=== PATIENT | male | born 1935 | race Caucasian/White ===

== ENCOUNTER 2021-04-02 00:18 | Inpatient (IN) | payer MEDICARE ==
[~2021-04-02] VITALS: Ht 177.8 cm; Wt 77.3 kg
--- NOTE | 2021-04-02 00:22 | PHYS DOC ---
Adult General HPI HPI Patient is an 85-year-old male who presents with a chief complaint of fatigue/weakness and body aches over the last week. States that he usually gets around at home with a walker which he can still but just feels weaker than usual. Denies any headache, change in vision, neck pain, chest pain, shortness of breath, abdominal pain, nausea, vomiting, dysuria, hematuria, blood in the stool or diarrhea. Denies any recent travel, traumas, fevers or known ill contacts. Denies any numbness/weakness/tingling. States he is sitting, standing and walking approximately normal for him but just feels overall weaker. States he eats about once or twice a day and probably does not drink enough water. Review of Systems Review of Systems Review of systems otherwise unremarkable except noted in HPI Physical Exam Physical Exam Constitutional: Well developed, seems a little under nourished, no acute distress, non-toxic appearance. [] HENT: Normocephalic, atraumatic, bilateral external ears normal, oropharynx dry, no oral exudates, nose normal. [] Eyes: PERRLA, EOMI, conjunctiva normal, no discharge. [] Neck: Normal range of motion, no tenderness, supple, no stridor. [] Cardiovascular:Heart rate regular rhythm, no murmur [] Lungs & Thorax: Bilateral breath sounds clear to auscultation [] Abdomen: soft, no tenderness, no masses, no pulsatile masses. [] Skin: Warm, dry, no erythema, no rash. [] Back: No tenderness, no CVA tenderness. [] Extremities: No tenderness, no cyanosis, no clubbing, ROM intact, no edema. [] Neurologic: Alert and oriented X 3, normal motor function, normal sensory function, walking at baseline with help per patient and patient's son, cranial nerves intact, no focal deficits noted, NIH is 0. [] Psychologic: Affect normal, judgement normal, mood normal. [] EKG EKG Rate of 61, QRS of 100, QTc of 412, no STEMI [] Radiology/Procedures Radiology/Procedures [] Heart Score C/O Chest Pain: No Risk Factors: Risk Factors: DM, Current or recent (<one month) smoker, HTN, HLP, family history of CAD, obesity. Risk Scores: Risk Factors: DM, Current or recent (<one month) smoker, HTN, HLP, family history of CAD, obesity. Course & Med Decision Making Course & Med Decision Making Patient is an 85-year-old male who presents with a chief complaint of fatigue/weakness and body aches over the last week Vital signs notable for hypertension. Physical exam noted above. EKG noted above with no STEMI. Normal troponin. Laboratory analysis not concerning. CT of the head not concerning. Chest x-ray not concerning. However, patient is 85, looks malnourished, lives at home alone and has no help to help him in the daytime. States he usually walks with a walker but is even having trouble with that currently. Discussed findings with patient and patient's son and recommended admission to the hospital for continued evaluation and treatment of patient's generalized weakness, and need for physical and/or occupational therapy and discussions about possible placement in a skilled nurs ing facility. Family grateful, verbalized understanding and agreed with plan of admission. Dragon Disclaimer Dragon Disclaimer This electronic medical record was generated, in whole or in part, using a voice recognition dictation system. Departure Departure: Impression: Primary Impression: Generalized weakness Additional Impression: Fatigue Disposition: ADMITTED INPATIENT Admitting Physician: Julianna Vasquez Condition: STABLE Referrals: AGATHA TRACEY MD (PCP) Problem Qualifiers BAIRON SPENCER MD Apr 02, 2021 00:22
[2021-04-02] MEDS ORDERED: IV RINGERS SOLUTION,LACTATED 1,000 ML IV ONE (00:30)
--- NOTE | 2021-04-02 00:39 | EKG ---
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
[2021-04-02 01:11] LABS: BASO # 0.1 x10^3/uL (0.0-0.2); BASO % 1 % (0-3); EOS # 0.3 x10^3/uL (0.0-0.7); EOS % 3 % (0-3); HEMATOCRIT 35.7 % (39.0-53.0); HEMOGLOBIN 12.2 g/dL (13.0-17.5); LYMPH # 1.9 x10^3/uL (1.0-4.8); LYMPH % 20 % (24-48); MEAN CORPUSCULAR HEMOGLOBIN 33 pg (25-35); MEAN CORPUSCULAR HGB CONC 34 g/dL (31-37); MEAN CORPUSCULAR VOLUME 95 fL (79-100); MONO # 0.8 x10^3/uL (0.0-1.1); MONO % 9 % (0-9); NEUT # 6.1 x10^3uL (1.8-7.7); NEUT % 67 % (31-73); PLATELET COUNT 272 x10^3/uL (140-400); RED BLOOD COUNT 3.76 x10^6/uL (4.30-5.70); RED CELL DISTRIBUTION WIDTH 13.7 % (11.5-14.5); WHITE BLOOD COUNT 9.1 x10^3/uL (4.0-11.0)
[2021-04-02 01:19] LABS: BACTERIA,URINE 0 /HPF (0-FEW); BILIRUBIN,URINE NEG (NEG); CLARITY,URINE CLEAR; COLOR,URINE YELLOW; GLUCOSE,URINE NEG (NEG); NITRITE,URINE NEG (NEG); RBC,URINE 0 /HPF (0-2); SQUAMOUS EPITHELIAL CELL,UR OCC /LPF; UROBILINOGEN,URINE 0.2 mg/dL (0.2 mg/dL); WBC,URINE OCC /HPF (0-4)
[2021-04-02 01:20] LABS: CALCIUM 8.9 mg/dL (8.5-10.1); CREATININE 0.8 mg/dL (0.7-1.3); GFR 91.9; POTASSIUM 3.5 mmol/L (3.5-5.1)
--- NOTE | 2021-04-02 01:25 | RAD ---
Single view chest dated 04/02/2021 1:22 AM: COMPARISON: None Clinical Indication: Generalized weakness. Findings: Single upright portable exam of the chest was performed. Heart size upper limits of normal. Lungs are clear. No consolidation or pleural effusion. No pneumothorax. There is mild hyperinflation. IMPRESSION: No acute radiographic abnormality. Electronically signed by: Franklin Cagle MD (04/02/2021 1:23 AM) GLORIA
--- NOTE | 2021-04-02 01:25 | RAD ---
CT head without contrast dated 04/02/2021 1:21 AM Comparison: None CLINICAL INDICATION: Generalized weakness TECHNIQUE: Contiguous axial imaging of the head was performed from skull base to vertex. One or more of the following individualized dose reduction techniques were utilized for this examinat ion: 1. Automated exposure control 2. Adjustment of the mA and/or kV according to patient size 3. Use of iterative reconstruction technique. FINDINGS: Ventricles and sulci are moderately prominent for age. No midline shift or mass effect. Mild patchy l ow density in the deep/subcortical periventricular white matter. No hemorrhage or extra-axial collect ion. Posterior fossa and brainstem unremarkable. Mild mucosal thickening of the ethmoid air cells. The visualized paranasal sinuses and mastoid air ce lls are otherwise clear. No apparent calvarial abnormality. IMPRESSION: 1. No evidence of acute intracranial hemorrhage or mass. 2. Mild chronic small vessel ischemic changes and atrophy. Electronically signed by: Franklin Cagle MD (04/02/2021 1:22 AM) GLORIA
[2021-04-02 01:26] LABS: ALBUMIN 3.1 g/dL (3.4-5.0); ALBUMIN/GLOBULIN RATIO 1.1 (1.0-1.7); MAGNESIUM 1.9 mg/dL (1.8-2.4); TOTAL BILIRUBIN 0.7 mg/dL (0.2-1.0)
[2021-04-02] MEDS ORDERED: CYANOCOBALAMIN (VITAMIN B-12) 1,000 MCG TABLET. PO SCH (01:30)
[2021-04-02] MEDS: FOLIC ACID 1 MG TABLET PO SCH ×2 (01:30→08:25)
[2021-04-02] MEDS: THIAMINE 100 MG TABLET. PO SCH ×2 (01:30→08:25)
[2021-04-02] MEDS ORDERED: HYDR50TA9 PO (02:11)
[2021-04-02] MEDS ORDERED: ATOR80TA72 PO (02:11)
[2021-04-02] MEDS ORDERED: HYDR-2155 (02:11)
[2021-04-02] MEDS ORDERED: CARV12.53 PO (02:11)
[2021-04-02] MEDS ORDERED: METF-658 PO (02:11)
[2021-04-02] MEDS ORDERED: LISI40TA6 PO (02:11)
[2021-04-02] MEDS ORDERED: FAMO20TA5 PO (02:11)
[2021-04-02 03:00] VITALS: BP 190/87
[2021-04-02 06:30] VITALS: BP 155/77
[2021-04-02] MEDS: CYANOCOBALAMIN (VITAMIN B-12) 1,000 MCG TABLET. PO SCH (08:25)
[2021-04-02] MEDS: HYDROcodone/APAP 5/325MG 1 TAB TABLET PO PRN ×3 (08:25→20:47)
[2021-04-02] MEDS ORDERED: FLU VACC QUAD 21-22 (6MOS+) PF 0.5 ML SYRINGE. VAX IM ONE (09:00)
[2021-04-02 11:53] VITALS: BP 165/80
--- NOTE | 2021-04-02 15:13 | HP ---
ADMIT DATE: 04/02/2021 HISTORY OF PRESENT ILLNESS: The patient is an 85-year-old male patient who presented to the Emergency Room with a chief complaint of fatigue and weakness and body aches over the last week. He states that he usually gets around at home with a walker, which he can still, but just feels weaker than usual. He denies any headache, change in vision, neck pain, chest pain. He denied any recent travel, trauma, fever or known ill contact. Denied any numbness, tingling, or weakness. States that his sitting, standing and walking approximately normal for him, but just feels overall weaker. He stated that he eats about once or twice a day and probably does not drink enough water. He was extensively investigated and has had lab work as well as imaging studies. His lab work including a CBC and a CMP were mostly unremarkable. Urinalysis was essentially unremarkable. His coronavirus by rapid testing was negative. His CT scan of the head showed no evidence of acute intracranial hemorrhage or mass, mild chronic small vessel ischemic changes and atrophy and his chest x-ray showed no acute radiographic abnormality. His biggest complaint was pain in his left knee joint. The patient was admitted for further evaluation and perhaps placement in a prison facility. PAST MEDICAL HISTORY: Significant for type 2 diabetes mellitus, hypertension, hyperlipidemia. He is also known to have benign prostatic hypertrophy and according to him, prostate cancer that apparently was treated with according to him, 40 radiation treatment. He also had coronary artery disease status post PCI with stent deployment x2, had generalized osteoarthritis and chronic low back pain. PAST SURGICAL HISTORY: Significant for bilateral cataract extraction, bilateral total hip arthroplasty. ALLERGIES: He has no known drug allergies. MEDICATIONS: He is currently on metoprolol tartrate 25 mg twice a day, atorvastatin 80 mg at bedtime, ranitidine 150 mg daily, lisinopril 40 mg once a day, metformin 500 mg twice a day, omega-3 fatty acids 1000 mg once a day, aspirin 325 mg once a day. He is on hydrocodone 5/325 one tablet every 6 hours. REVIEW OF SYSTEMS: As per history of present illness. PHYSICAL EXAMINATION: GENERAL: When I examined him this morning, he looked well and was clearly in no apparent respiratory distress. There was no pallor, jaundice, cyanosis, or thyromegaly. No jugular venous distention. No limb edema. VITAL SIGNS: His heart rate was 60, blood pressure was 165/80, temperature was 98.4, respiratory rate was 13, and oxygen saturation was 98%. HEAD, EYES, EARS, NOSE, AND THROAT: Showed normocephalic, atraumatic. NECK: Supple. HEART: Normal first and second heart sounds, no gallop, rub or murmur. CHEST: Clear to auscultation, no crepitation or rhonchi. ABDOMEN: Distended, soft, nontender. NEUROLOGIC: He seems to be somewhat confused, but otherwise all his cranial nerves are intact. He moves extremities without difficulty. He ambulates with a walker. LABORATORY DATA: On arrival showed a white cell count of 9000, hemoglobin 12.2, hematocrit 35, MCV 95 and platelet count of 272,000 with normal manual differential. His chemistry showed a serum sodium 134, potassium 3.5, chloride 99, bicarbonate 29, anion gap of 6, BUN 23, creatinine 0.8. Estimated GFR was 92 mL per minute. His glucose 118, calcium was 8.9. His magnesium was 1.9. Total bilirubin, AST, ALT, alkaline phosphatase were normal. Total protein 6, albumin 3.1. His TSH was 2.040. His chest x-ray showed no acute radiographic abnormality and a CT scan of the head showed no evidence of acute intracranial hemorrhage or mass. There are mild chronic small vessel ischemic changes and atrophy. ASSESSMENT AND PLAN: In summary, this is an 85-year-old male patient who was admitted with generalized weakness and progressive decline that has worsened over the last week. He did complain of low back pain and pain in his left knee joint. He apparently tried to renew his driving license, but his application was refused given that he was not driving properly and putting himself and others in the harm's ways. Given the fact that he has prostate cancer treated before and has chronic back pain, I will arrange for him to check his PSA as well as also x-ray of his lumbar spine and decide on further management accordingly. He might require placement in a prison facility or eventually go home with home health, although apparently he is not safe to be on his own. VITOR DR: Amparo TID: [id number]
--- NOTE | 2021-04-02 15:25 | RAD ---
EXAM: Lumbar spine, 3 views. HISTORY: Prostate cancer. Pain. COMPARISON: None. FINDINGS: 3 views of the lumbar spine are obtained. There is levoscoliosis centered at L2. There is 4 mm grade 1 anterolisthesis of L4 on L5 and 3 mm grade 1 anterolisthesis of L5 on S1. There is 3 mm r etrolisthesis of L1 on L2. There is a mild chronic anterior wedge compression deformity of T12. There is multilevel endplate remodeling and Schmorl's node formation at multiple levels. There is facet ar thropathy predominantly at the lower lumbar levels. There is a right lateral bridging osteophyte at L 1-L2, corresponding with the level of maximum scoliotic concavity. There is cholelithiasis. There are bilateral hip arthroplasties. IMPRESSION: 1. Multilevel degenerative change throughout the spine, described in detail above. 2. Lumbar scoliosis and mild retrolisthesis. 3. Moderate chronic wedge compression fracture of T12. There is no acute osseous finding. Electronically signed by: Tatiana Allen MD (04/02/2021 3:23 PM) [id number]
[2021-04-02 15:33] VITALS: BP 160/76
[2021-04-02 19:00] VITALS: BP 156/72
[2021-04-02] MEDS: ATORVASTATIN CALCIUM 20 MG TABLET PO SCH (20:47)
[2021-04-02] MEDS: FAMOTIDINE 20 MG TABLET PO SCH (20:47)
[2021-04-02] MEDS: CARVEDILOL 12.5 MG TABLET PO SCH (20:48)
[2021-04-02 23:16] VITALS: BP 172/78
[2021-04-03] MEDS: HYDROcodone/APAP 5/325MG 1 TAB TABLET PO PRN (02:57)
[2021-04-03 05:00] VITALS: BP 190/83
[2021-04-03] MEDS ORDERED: LISINOPRIL 20 MG TABLET ONE (06:11)
[2021-04-03] MEDS ORDERED: hydroCHLOROthiazide 25 MG TABLET. ONE (06:11)
[2021-04-03] MEDS: CARVEDILOL 12.5 MG TABLET PO SCH ×2 (06:13→20:13)
[2021-04-03] MEDS: LISINOPRIL 20 MG TABLET PO SCH (06:14)
[2021-04-03 07:24] LABS: CALCIUM 8.7 mg/dL (8.5-10.1); CREATININE 0.7 mg/dL (0.7-1.3); GFR 107.2; POTASSIUM 3.2 mmol/L (3.5-5.1)
[2021-04-03] MEDS: metFORMIN XR 500 MG TAB.ER.24H PO SCH (08:18)
[2021-04-03] MEDS: THIAMINE 100 MG TABLET. PO SCH (08:19)
[2021-04-03] MEDS: FAMOTIDINE 20 MG TABLET PO SCH ×2 (08:19→20:13)
[2021-04-03] MEDS: FOLIC ACID 1 MG TABLET PO SCH (08:19)
[2021-04-03] MEDS: CYANOCOBALAMIN (VITAMIN B-12) 1,000 MCG TABLET. PO SCH (08:20)
[2021-04-03] MEDS ORDERED: hydroCHLOROthiazide 25 MG TABLET. PO SCH (09:00)
[2021-04-03] MEDS ORDERED: POTASSIUM CHLORIDE 20 MEQ TABLET.ER. PO ONE (11:00)
[2021-04-03 11:36] VITALS: BP 173/75
[2021-04-03 15:26] VITALS: BP 182/57
--- NOTE | 2021-04-03 16:14 | PN ---
DATE: 04/03/2021 SUBJECTIVE: The patient is resting slightly propped up in bed, in no apparent respiratory distress. He is awake, alert, confused. He is a little bit more ambulatory today. He has been up and about getting out of his room. OBJECTIVE: GENERAL: When I examined him, he looked well and was clearly in no apparent respiratory distress. He was somewhat pale, not jaundiced or cyanosed, no lymphadenopathy, no thyromegaly, no jugular venous distention. No lower limb edema. VITAL SIGNS: His heart rate was 65, blood pressure was 190/83, temperature was 98.3, respiratory rate was 16 and oxygen saturation was 97% on room air. HEAD, EYES, EARS, NOSE, AND THROAT: Normocephalic, atraumatic. NECK: Supple. HEART: Showed normal first and second heart sounds. No gallop, rub or murmur. CHEST: Clear to auscultation. No crepitation or rhonchi. ABDOMEN: Scaphoid, soft, nontender. NEUROLOGIC: He was somewhat demented, confused, but without any obvious lateralizing sign. He is able to ambulate with a walker. His intake over the last 24 hours was 1150, output was 750. LABORATORY DATA: His chemistry showed a serum sodium of 135, potassium 3.2, chloride 101, bicarbonate 32, anion gap of 2, BUN 15, creatinine 0.7. Estimated GFR was 107 mL per minute. His glucose 128, calcium was 8.7. His sed rate was only 11 mm per hour and C-reactive protein was 6.8 mg per liter. Urinalysis essentially unremarkable and his coronavirus by PCR was negative. I did an x-ray of his lumbar spine, which showed that he has multilevel degenerative changes throughout the spine described, has lumbar scoliosis and mild retrolisthesis, has moderate chronic wedge compression fracture of T12. There is no acute osseous finding. ASSESSMENT: In summary, this is an 85-year-old male patient who was admitted with generalized weakness and progressive decline that has worsened over the last week. He does have low back pain that radiates to his left knee joint. Lumbar spine x-ray showed that he has multilevel degenerative disk disease and T12 compression fracture. This seems to be old. His blood pressure also seems to be poorly controlled. PLAN: To continue with all his medication for now. Might have to adjust his blood pressure medication further. He probably needs to be in a long-term care facility. We will discuss this with his family tomorrow and our social and human services assistant or at least he can go for a residential facility for rehabilitation before he can go home. JEFRY/CLARKE JIMÉNEZ: Amparo TID: [id number]
[2021-04-03 19:20] VITALS: BP 177/83
[2021-04-03] MEDS: ATORVASTATIN CALCIUM 20 MG TABLET PO SCH (20:12)
[2021-04-03] MEDS: POTASSIUM CHLORIDE 20 MEQ TABLET.ER. PO SCH (20:13)
[2021-04-04 07:28] VITALS: BP 181/92
[2021-04-04] MEDS: POTASSIUM CHLORIDE 20 MEQ TABLET.ER. PO SCH (07:51)
[2021-04-04] MEDS: FAMOTIDINE 20 MG TABLET PO SCH (07:51)
[2021-04-04] MEDS: CYANOCOBALAMIN (VITAMIN B-12) 1,000 MCG TABLET. PO SCH (07:52)
[2021-04-04] MEDS: FOLIC ACID 1 MG TABLET PO SCH (07:52)
[2021-04-04] MEDS: THIAMINE 100 MG TABLET. PO SCH (07:52)
[2021-04-04] MEDS: CARVEDILOL 12.5 MG TABLET PO SCH (07:52)
[2021-04-04] MEDS: metFORMIN XR 500 MG TAB.ER.24H PO SCH (07:52)
[2021-04-04] MEDS: LISINOPRIL 20 MG TABLET PO SCH (07:53)
[2021-04-04] MEDS ORDERED: hydroCHLOROthiazide 25 MG TABLET. PO SCH (09:00)
[2021-04-04 11:20] VITALS: BP 157/81
[2021-04-04 12:37] LABS: CALCIUM 9.1 mg/dL (8.5-10.1); CREATININE 0.8 mg/dL (0.7-1.3); GFR 91.9; POTASSIUM 4.1 mmol/L (3.5-5.1)
[2021-04-04 15:01] VITALS: BP 147/74
--- NOTE | 2021-04-04 16:01 | RAD ---
Whole-body nuclear bone scan with lateral views of the spine, compared to chest x-ray dated April 012020 and aggressive lumbar spine dated April 12, 2021 for low back pain, T12 compression fractu re, acute versus chronic. TECHNIQUE: Following administration of 22 mCi of technetium 99m labeled MDP, whole body planar and fo cused lateral views of the spine are obtained. FINDINGS: There is normal soft tissue and renal distribution radiotracer. There is focal uptake at th e costochondral junction of the right eighth rib anteriorly. There is also amorphous uptake seen in t he posterior aspect of the right ninth rib, which may be slightly expansile could reflect a lytic bon e lesion or sequelae of prior trauma. CT of the chest could clarify. Multiple degenerative areas of t he costovertebral junctions of the thoracic spine are seen. Subtly increased activity within the ster num just below the manubrium is nonspecific. Degenerative uptake in the cervical spine, left first me tacarpal phalangeal joint, both AC joints, and both shoulders. No vertebral body activity to suggest acute compression fracture. Impression: 1. No activity at T12, indicative of chronicity for the T12 compression deformity seen on radiographs . 2. Abnormal radiotracer activity involving the right posterior ninth rib, with no definite radiograph ic correlate. This could be related to rib fracture in the setting of recent trauma, however patholog ic bone lesion could also have this appearance. CT scan of the chest without contrast could clarify i f clinically warranted. 3. Multiple areas of osteoarthritis. Electronically signed by: Eder Pringle MD (04/04/2021 3:59 PM) [id number]
[2021-04-04] MEDS: HYDROcodone/APAP 5/325MG 1 TAB TABLET PO PRN (16:21)
[2021-04-04] MEDS ORDERED: HYDR-2155 PO (16:40)
--- NOTE | 2021-04-04 16:45 | DISCH ---
HOME HEALTH DISCHARGE/MEDS DISCHARGE INFORMATION: Discharge Date: Apr 04, 2021 Final Diagnosis: Problems Medical Problems: (1) Fatigue Status: Acute (2) Generalized weakness Status: Acute Condition on Discharge: Stable CODE STATUS: Code Status: Full HOME HEALTH: Face to Face: I certify this patient is under my care and that I, or a nurse practitioner or physician's greenhouse assistant working with me, had a face to face encounter that meets the physician face to face encounter requirements with this patient on Medical Condition(s): Other Physical Therapy For: Evalulation/Treatment Occupational Therapy For: Evaluation/Treatment POST DISCHARGE ORDERS: Activity Instructions for Disc: Activity as tolerated DIET AFTER DISCHARGE: Regular CERTIFICATION STATEMENT: Certification Statement: Based on the above finding, I certify that this patient is confined to the home and needs intermittent chcf care, physical therapy and/or speech therapy, or continues to need occupational therapy.~ This patient is under my care, and I have initiated the establishment of the plan of care.~ This patient will be followed by myself or a community physician who will periodically review the plan of care. DISCHARGE MEDICATIONS: Home Meds Active Scripts Hydrocodone Bit/Acetaminophen (HYDROCODONE-APAP 5-325 ) 1 Each Tablet, 1 TAB PO PRN Q6HRS PRN for PAIN for 15 Days, #60 TAB 0 Refills Prov:JOANNA KLEIN MD 04/04/21 Reported Medications Carvedilol (Carvedilol) 12.5 Mg Tablet, 1 TAB PO BID for HTN 04/02/21 Atorvastatin Calcium (Atorvastatin Calcium) 80 Mg Tablet, 1 TAB PO DAILY for HLD 04/02/21 Metformin Hcl (METFORMIN HCL ER) 500 Mg Tab.er.24h, 1 TAB PO DAILY for DM 04/02/21 Hydrochlorothiazide (HYDROCHLOROTHIAZIDE TABLET) 50 Mg Tablet, 1 TAB PO DAILY fo r CHF 04/02/21 Hydrocodone Bit/Acetaminophen (HYDROCODONE-APAP 5-325 ) 1 Each Tablet, 5-325 MG UD for pain 04/02/21 Famotidine (FAMOTIDINE) 20 Mg Tablet, 1 TAB PO BID for gerd 04/02/21 Lisinopril (LISINOPRIL) 40 Mg Tablet, 1 TAB PO DAILY for htn 04/02/21 JOANNA KLEIN MD Apr 04, 2021 16:45
--- NOTE | 2021-04-05 01:13 | PN ---
DATE: 04/04/2021 SUBJECTIVE: The patient is resting, slightly propped up in bed, in no apparent respiratory distress, sleepy, but arousable on questioning him. He continued to have some low back pain radiating to her left leg. According to nursing staff, he is ambulating with a walker, but he is unsteady. He is very confused and disoriented at times. PHYSICAL EXAMINATION: GENERAL: When I examined him, he looked pale, but no jaundice, cyanosis or thyromegaly. No jugular venous distention. No limb edema. VITAL SIGNS: His heart rate this morning 66, blood pressure is 157/81, temperature 97.8, respiratory rate was 18 and oxygen saturation was 98%. The rest of clinical exam stable. His intake was 1060. No output was recorded. LABORATORY DATA: His lab work still pending at the time of this dictation. ASSESSMENT: 1. Generalized weakness, progressive decline. 2. Low back pain that radiates to left knee. 3. Lumbar spine x-ray showed that he has multilevel degenerative disk disease and T12 compression fracture. Other medical problems including: A. Type 2 diabetes mellitus. B. Hypertension. C. Hyperlipidemia. D. Benign prostatic hypertrophy. E. Prostate cancer. F. Coronary artery disease status post PCI with stent deployment x 2. PLAN: To continue with pain management. Continue with physical and occupational therapy. Await the results of bone scan and also discussion with his family regarding placement or discharge home with home health. JOHN DR: Amparo TID: [id number]
== END 2021-04-04 17:55 | disposition home health service (06) | DRG 552 ==
LOC: ER 00:18 → 1 SOUTH 01:32
PROVIDERS: ADMIT Internal Medicine; ATTEND Internal Medicine
DX: M51.36 Other intervertebral disc degeneration, lumbar region (principal); M48.54XA Collapsed vertebra, not elsewhere classified, thoracic region, initial encounter for fracture; E11.9 Type 2 diabetes mellitus without complications; E78.5 Hyperlipidemia, unspecified; G89.29 Other chronic pain; I10 Essential (primary) hypertension; I25.10 Atherosclerotic heart disease of native coronary artery without angina pectoris; M15.9 Polyosteoarthritis, unspecified; N40.0 Benign prostatic hyperplasia without lower urinary tract symptoms; Z85.46 Personal history of malignant neoplasm of prostate; Z95.5 Presence of coronary angioplasty implant and graft; Z96.643 Presence of artificial hip joint, bilateral; Z98.41 Cataract extraction status, right eye; Z98.42 Cataract extraction status, left eye; Z20.822 Contact with and (suspected) exposure to COVID-19
CPT/HCPCS: 36415; 70450; 71045; 72100; 78306; 80048; 80053; 81001; 82947; 83735; 84443; 84484; 85025; 85651; 86140; 87426; 90471; 90686; 93005; A9503; G0103; J7120; U0003; 99285-25

== ENCOUNTER 2021-04-25 23:49 | Inpatient (IN) | payer MEDICARE ==
[~2021-04-25] VITALS: Ht 180.3 cm; Wt 75.2 kg
[~2021-04-25 23:49] MED LIST: ATOR80TA72 PO; CARV12.53 PO; FAMO20TA5 PO; HYDR-2155; HYDR-2155 PO; HYDR50TA9 PO; LISI40TA6 PO; METF-658 PO
--- NOTE | 2021-04-26 00:01 | PHYS DOC ---
Past History Past Medical History: CAD, CHF, Diabetes Past Surgical History: Other General Adult HPI: HPI: ".. I needed to go pee... but I was too weak to get up and go to bathroom.. I ve been weak for a while .. but not this weak.. I am to see a cardiology person tomorrow... here in [place].. he is out of .... Dr. Tracey has set it up...." Patient is a 86 year old male who presents with above hx and complaints increased weakness. Patient has a history of diabetes, hypertension, hyperlipidemia, enlarged prostate, prostate cancer, coronary artery disease, status post stent deployment x2, osteoarthritis, chronic low back pain, and deconditioning, . The patient recently admitted for similar complaints on 04/02/2021. Patient has not had any recent changes in meds. No recent travel. No specific ill contacts. No history of venous pression. Review of Systems: Review of Systems: Constitutional: Denies fever or chills Eyes: Denies change in visual acuity HENT: Denies nasal congestion or sore throat Respiratory: Planes of shortness of breath Cardiovascular: Denies chest pain or edema GI: Denies abdominal pain, nausea, vomiting, bloody stools or diarrhea : Denies dysuria Musculoskeletal: Complains of generalized weakness Integument: Denies rash Neurologic: Denies headache, focal weakness or sensory changes Endocrine: Denies polyuria or polydipsia Lymphatic: Denies swollen glands Psychiatric: Denies depression or anxiety Family History: Family History: Noncontributory to presentation Current Medications: Current Meds: See nursing for home meds Allergies: Allergies: Allergies Coded Allergies Type Severity Reaction Last Updated Verified No Known Drug Allergies 04/02/21 No Physical Exam: PE: Constitutional: Moderate distress, non-toxic appearance. [] HENT: Normocephalic, atraumatic, bilateral external ears normal, oropharynx moist, no oral exudates, nose normal. Multiple senile keratosis. Large ones over the quaker areas. Eyes: PERRLA, EOMI, conjunctiva normal, no discharge. [] Neck: Normal range of motion, no tenderness, supple, no stridor. [] Cardiovascular:Heart rate regular rhythm, no murmur, PMI to the left monitor shows a sinus bradycardia with occasional PVC Lungs & Thorax: Bilateral breath sounds equal apex with some basilar crackles on auscultation [] Abdomen: Bowel sounds normal, soft, no tenderness, no masses, no pulsatile masses. [] Skin: Warm, dry, no erythema, no rash. Poor turgor. Senile keratosis and sun exposed areas Back: No tenderness, no CVA tenderness. [] Extremities: No tenderness, no cyanosis, no clubbing, ROM intact, mild ankle edema. Arthritic changes Neurologic: Alert and oriented X 3, moves all extremities on request, does have distal sensory, complains of generalized weakness but reports no focal deficits noted. [] Psychologic: Affect anxious, judgement normal, mood normal. [] EKG: EKG: My interpretation EKG shows a sinus bradycardia at 59 bpm. Baseline artifact. Some inferior changes. But no findings of acute STEMI of contralateral changes. Time of EKG is 00 13 minutes Radiology/Procedures: Radiology/Procedures: [][][address] [address] IMAGING REPORT Signed PATIENT: CHARLENE PEREZ ACCOUNT: [id number] : 1935 LOCATION: ER AGE: 86 SEX: M EXAM STATUS: REG ER ORD. PHYSICIAN: HAI JOHNSON MD REASON: dyspnea PROCEDURE: PORTABLE CHEST 1V XR CHEST 1V 04/26/2021 12:38 AM INDICATION: Dyspnea COMPARISON: 04/02/2021 TECHNIQUE: Portable frontal view of the chest is provided. FINDINGS: The cardiomediastinal silhouette is within normal limits. Lungs are clear. There are no significant pleural effusions. There is no pulmonary vascular conge stion. No pneumothorax. No suspicious osseous abnormality. IMPRESSION: There is no acute cardiopulmonary process. Electronically signed by: Keith Mai MD (04/26/2021 12:56 AM) [facility] DICTATED AND SIGNED BY: KEITH MAI MD DATE: 04/26/21 0055 CC: AGATHA TRACEY MD; HAI JOHNSON MD ~MTH0 0 Heart Score: C/O Chest Pain: N/A Risk Factors: Risk Factors: DM, Current or recent (<one month) smoker, HTN, HLP, family history of CAD, obesity. Risk Scores: Score 0 - 3: 2.5% MACE over next 6 weeks - Discharge Home Score 4 - 6: 20.3% MACE over next 6 weeks - Admit for Clinical Observation Score 7 - 10: 72.7% MACE over next 6 weeks - Early Invasive Strategies Course & Med Decision Making: Course & Med Decision Making Pertinent Labs and Imaging studies reviewed. (See chart for details) Discussed presentation, testing and tx. plan with Dr. Vasquez- Admit to his service Impression: 1. Weakness 2. Hyponatremia 130 3. Anemia 12.4 4. Bradycardia 5. Hypertension [] Dragon Disclaimer: Dragon Disclaimer: This electronic medical record was generated, in whole or in part, using a voice recognition dictation system. Departure Departure: Referrals: AGATHA TRACEY MD (PCP) Janine Disclaimer This chart was dictated in whole or in part using Voice Recognition software in a busy, high-work load, and often noisy Emergency Department environment. It may contain unintended and wholly unrecognized errors or omissions. HAI JOHNSON MD Apr 26, 2021 00:01
[2021-04-26] MEDS ORDERED: IV RINGERS SOLUTION,LACTATED 1,000 ML IV SCH (00:15)
[2021-04-26 00:24] LABS: BASO % 1 % (0-3); EOS # 0.2 x10^3/uL (0.0-0.7); EOS % 3 % (0-3); HEMATOCRIT 36.5 % (39.0-53.0); HEMOGLOBIN 12.4 g/dL (13.0-17.5); LYMPH # 1.6 x10^3/uL (1.0-4.8); LYMPH % 21 % (24-48); MEAN CORPUSCULAR HEMOGLOBIN 32 pg (25-35); MEAN CORPUSCULAR HGB CONC 34 g/dL (31-37); MEAN CORPUSCULAR VOLUME 93 fL (79-100); MONO # 0.6 x10^3/uL (0.0-1.1); MONO % 9 % (0-9); NEUT # 4.9 x10^3uL (1.8-7.7); NEUT % 67 % (31-73); PLATELET COUNT 285 x10^3/uL (140-400); RED BLOOD COUNT 3.91 x10^6/uL (4.30-5.70); RED CELL DISTRIBUTION WIDTH 13.3 % (11.5-14.5); WHITE BLOOD COUNT 7.4 x10^3/uL (4.0-11.0)
[2021-04-26 00:41] LABS: CREATININE 1.1 mg/dL (0.7-1.3); GFR 63.5; POTASSIUM 3.4 mmol/L (3.5-5.1)
[2021-04-26 00:54] LABS: BARBITURATES NEG (NEG); BENZODIAZEPINES NEG (NEG); CANNABINOIDS NEG (NEG); COCAINE NEG (NEG); METHADONE NEG (NEG); OPIATES POS (NEG); PHENCYCLIDINE NEG (NEG)
--- NOTE | 2021-04-26 00:58 | RAD ---
XR CHEST 1V 04/26/2021 12:38 AM INDICATION: Dyspnea COMPARISON: 04/02/2021 TECHNIQUE: Portable frontal view of the chest is provided. FINDINGS: The cardiomediastinal silhouette is within normal limits. Lungs are clear. There are no significant pleural effusions. There is no pulmonary vascular congestion. No pneumothora x. No suspicious osseous abnormality. IMPRESSION: There is no acute cardiopulmonary process. Electronically signed by: Liat Colon MD (04/26/2021 12:56 AM) [facility]
[2021-04-26 00:59] LABS: AMPHETAMINE/METHAMPHETAMINE NEG (NEG)
[2021-04-26 01:02] LABS: BACTERIA,URINE 0 /HPF (0-FEW); BILIRUBIN,URINE NEG (NEG); CLARITY,URINE CLEAR; COLOR,URINE YELLOW; GLUCOSE,URINE NEG (NEG); NITRITE,URINE NEG (NEG); RBC,URINE 0 /HPF (0-2); SQUAMOUS EPITHELIAL CELL,UR OCC /LPF; WBC,URINE RARE /HPF (0-4)
[2021-04-26 01:03] LABS: ALBUMIN 3.1 g/dL (3.4-5.0); DIRECT BILIRUBIN 0.2 mg/dL (0.0-0.2); MAGNESIUM 1.9 mg/dL (1.8-2.4); TOTAL BILIRUBIN 0.8 mg/dL (0.2-1.0); TOTAL PROTEIN 6.5 g/dL (6.4-8.2)
[2021-04-26] MEDS ORDERED: SODIUM BICARB ADULT 8.4% 50 MEQ/50 ML DISP.SYRIN. IV ONE (01:15)
[2021-04-26] MEDS ORDERED: ONDANSETRON PF 4 MG/2 ML VIAL. IVP PRN (01:30)
--- NOTE | 2021-04-26 02:22 | RAD ---
PQRS Compliance Statement: One or more of the following individualized dose reduction techniques were utilized for this examinat ion: 1. Automated exposure control 2. Adjustment of the mA and/or kV according to patient size 3. Use of iterative reconstruction technique CT head without contrast 04/26/2021 1:42 AM INDICATION: Weakness COMPARISON: CT head 04/02/2021 TECHNIQUE: Multiple axial CT images of the head were obtained from skull base through the vertex with out intravenous contrast. FINDINGS: Head: Ventricles, sulci and basal cisterns are prominent compatible with moderate generalized cerebral volu me loss. Low-attenuation in the periventricular white matter is suggestive of chronic small vessel is chemic changes. There is no hydrocephalus. Shepherd-white matter differentiation is normal. There is no a cute intracranial hemorrhage. There is no mass, mass effect or midline shift. Posterior fossa is norm al in appearance. Visualized portions of the orbits are normal. Paranasal sinuses are well aerated. Mastoid air cells a re well aerated. Scalp and calvaria are normal. IMPRESSION: No acute intracranial hemorrhage. Moderate generalized cerebral volume loss. Low-attenuation in the periventricular white matter is suggestive of chronic small vessel ischemic ch anges. Electronically signed by: Liat Colon MD (04/26/2021 2:20 AM) [facility]
[2021-04-26 03:02] VITALS: BP 160/84
[2021-04-26] MEDS: RIVAROXABAN 15 MG TABLET. PO SCH ×3 (04:07→16:20)
[2021-04-26] MEDS: ACETAMINOPHEN 325 MG TABLET PO PRN ×2 (04:09→16:25)
--- NOTE | 2021-04-26 04:29 | NUR ---
The patient, CHARLENE PEREZ, 86 y/o, M admitted by JOANNA KLEIN MD, was given written information regarding hospital policies, unit procedures and contact persons. Valuables were checked and vital signs obtained. PT presents after not being able to get up from couch. PT states he normally calls his son for help but decided to call the ambulance this time. Reviewed with PT his PMH, PSH, SH, FH and medications. PT cannot remember his medications. PT states he has discussed with his sons and daughter about moving into assisted living from living home alone sometime soon. PT requires 1-person assist to help with urinal.
[2021-04-26 05:00] VITALS: BP 163/71
--- NOTE | 2021-04-26 07:44 | EKG ---
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 MILD NON SPECIFIC ST CHANGES Electronically Signed On 05-02-2021 10:35:44 TELEVISION ANCHOR by Royal Cavazos
[2021-04-26] MEDS ORDERED: IPRATRPIUM/ALBUTEROL 0.5/2.5MG 3 ML NEBU. NEB SCH (08:00)
--- NOTE | 2021-04-26 08:38 | PDOC2 ---
CARDIAC CONSULT DATE OF CONSULT DOS: DATE: 04/26/21 TIME: 08:26 REASON FOR CONSULT Reason for Consult CHF soraida REFERRING PHYSICIAN Referring Physician Dr. Au SOURCE Source: Chart review, Patient HPI History of Present Illness This is an 86 yo male who presented secondary to weakness, pain in his lower back and legs, and inability to care for himself at home. NT pro BNP mildly elevated, which prompted this consult. He denies any shortness of breath, d izziness, diaphoresis, chest pain, or nausea/vomiting. Was admitted recently for same. Does have a history of CAD s/p PCI/stents and follows with [facility]Dr. Nguyen. No recent illness or fevers. PAST MEDICAL HISTORY Cardiovascular: CAD, CHF, HTN CENTRAL NERVOUS SYSTEM: Dementia GI: GERD Musculoskeletal: low back pain (Chronic), Osteoarthritis Renal/: Prostate Ca. Endocrine: Diabetes PAST SURGICAL HISTORY Past Surgical History: Total hip replacement FAMILY HISTORY Family History: Heart Disease, Stroke SOCIAL HISTORY Smoke: No ALCOHOL: none Drugs: None Lives: Alone CURRENT MEDICATIONS Current Medications Current Medications Lactated Ringer's 1,000 ml @ 100 mls/hr Q10H IV Last administered on 04/26/21at 00:15; Start 04/26/21 at 00:15; Stop 04/26/21 at 10:14 Sodium Bicarbonate (Sodium Bicarb Adult 8.4% Syr) 50 meq 1X ONCE IV Last administered on 04/26/21at 01:36; Start 04/26/21 at 01:15; Stop 04/26/21 at 01:16; Status DC Ondansetron HCl (Zofran) 4 mg PRN Q4HRS PRN IVP NAUSEA/VOMITING; Start 04/26/21 at 01:30; Stop 04/27/21 at 01:29 Acetaminophen (Tylenol) 650 mg PRN Q4HRS PRN PO FEVER > 100.3'F Last administered on 04/26/21at 04:09; Start 04/26/21 at 01:30; Stop 04/27/21 at 01:29 Albuterol/ Ipratropium (Duoneb) 3 ml RTQID NEB Last administered on 04/26/21at 06:00; Start 04/26/21 at 08:00; Stop 04/27/21 at 07:59 Aspirin (Alexis Aspirin) 81 mg DAILY PO ; Start 04/26/21 at 09:00 Rivaroxaban (Xarelto) 15 mg BIDWMEALS PO Last administered on 04/26/21at 04:07; Start 04/26/21 at 02:00 Active Scripts Active Hydrocodone-Apap 5-325 (Hydrocodone Bit/Acetaminophen) 1 Each Tablet 1 Tab PO PRN Q6HRS PRN 15 Days Reported Carvedilol 12.5 Mg Tablet 1 Tab PO BID Atorvastatin Calcium 80 Mg Tablet 1 Tab PO DAILY Metformin Hcl Er (Metformin Hcl) 500 Mg Tab.er.24h 1 Tab PO DAILY Hydrochlorothiazide Tablet (Hydrochlorothiazide) 50 Mg Tablet 1 Tab PO DAILY Famotidine 20 Mg Tablet 1 Tab PO BID Lisinopril 40 Mg Tablet 1 Tab PO DAILY ALLERGIES Allergies: Coded Allergies: No Known Drug Allergies (Unverified , 04/02/21) ROS Review of Systems 14 point ROS conducted with pertinent positives noted in HPI PHYSICAL EXAM General: Alert, Oriented X3, Cooperative, No acute distress HEENT: Atraumatic Lungs: Clear to auscultation Heart: Regular rate (SR/SB) Abdomen: Soft Extremities: No edema Skin: No breakdown Neuro: Normal speech, Sensation intact Psych/Mental Status: Mental status NL, Mood NL MUSCULOSKELETAL: Osteoarthritic changes both hands VITALS Vital Signs Vital Signs Date Time Temp Pulse Resp B/P (MAP) Pulse Ox O2 Delivery O2 Flow Rate FiO2 04/26/21 06:00 Room Air 04/26/21 05:00 98.3 74 16 163/71 (101) 95 LABS LABS Laboratory Tests Test 04/26/21 00:11 04/26/21 00:31 04/26/21 00:48 04/26/21 03:25 White Blood Count 7.4 x10^3/uL (4.0-11.0) Red Blood Count 3.91 x10^6/uL (4.30-5.70) Hemoglobin 12.4 g/dL (13.0-17.5) Hematocrit 36.5 % (39.0-53.0) Mean Corpuscular Volume 93 fL (79-100) Mean Corpuscular Hemoglobin 32 pg (25-35) Mean Corpuscular Hemoglobin Concent 34 g/dL (31-37) Red Cell Distribution Width 13.3 % (11.5-14.5) Platelet Count 285 x10^3/uL (140-400) Neutrophils (%) (Auto) 67 % (31-73) Lymphocytes (%) (Auto) 21 % (24-48) Monocytes (%) (Auto) 9 % (0-9) Eosinophils (%) (Auto) 3 % (0-3) Basophils (%) (Auto) 1 % (0-3) Neutrophils # (Auto) 4.9 x10^3uL (1.8-7.7) Lymphocytes # (Auto) 1.6 x10^3/uL (1.0-4.8) Monocytes # (Auto) 0.6 x10^3/uL (0.0-1.1) Eosinophils # (Auto) 0.2 x10^3/uL (0.0-0.7) Basophils # (Auto) 0.0 x10^3/uL (0.0-0.2) Prothrombin Time 10.2 SEC (9.4-11.4) Prothromb Time International Ratio 1.0 (0.9-1.1) Activated Partial Thromboplast Time 24 SEC (23-33) D-Dimer (Jolynn) 1.09 mg/L (0.00-0.50) Sodium Level 130 mmol/L (136-145) Potassium Level 3.4 mmol/L (3.5-5.1) Chloride Level 93 mmol/L (98-107) Carbon Dioxide Level 30 mmol/L (21-32) Anion Gap 7 (6-14) Blood Urea Nitrogen 23 mg/dL (8-26) Creatinine 1.1 mg/dL (0.7-1.3) Estimated GFR (Cockcroft-Gault) 63.5 Glucose Level 134 mg/dL (70-99) Calcium Level 9.0 mg/dL (8.5-10.1) Magnesium Level 1.9 mg/dL (1.8-2.4) Total Bilirubin 0.8 mg/dL (0.2-1.0) Direct Bilirubin 0.2 mg/dL (0.0-0.2) Aspartate Amino Transf (AST/SGOT) 36 U/L (15-37) Alanine Aminotransferase (ALT/SGPT) 27 U/L (16-63) Alkaline Phosphatase 66 U/L (46-116) Creatine Kinase 184 U/L (39-308) Troponin I High Sensitivity 44 ng/L (4-75) 45 ng/L (4-75) MD-Tvq-R-Type Natriuretic Peptide 676 pg/mL (0-449) Total Protein 6.5 g/dL (6.4-8.2) Albumin 3.1 g/dL (3.4-5.0) Lipase 154 U/L (73-393) Urine Collection Type Unknown Urine Color Yellow Urine Clarity Clear Urine pH 7.5 Urine Specific [place] 1.020 Urine Protein Neg (NEG-TRACE) Urine Glucose (UA) Neg mg/dL (NEG) Urine Ketones (Stick) Neg mg/dL (NEG) Urine Blood Neg (NEG) Urine Nitrite Neg (NEG) Urine Bilirubin Neg (NEG) Urine Urobilinogen Dipstick 1.0 mg/dL (0.2 mg/dL) Urine Leukocyte Esterase Neg (NEG) Urine RBC 0 /HPF (0-2) Urine WBC Rare /HPF (0-4) Urine Squamous Epithelial Cells Occ /LPF Urine Bacteria 0 /HPF (0-FEW) Urine Opiates Screen Pos (NEG) Urine Methadone Screen Neg (NEG) Urine Barbiturates Neg (NEG) Urine Phencyclidine Screen Neg (NEG) Urine Amphetamine/Methamphetamine Neg (NEG) Urine Benzodiazepines Screen Neg (NEG) Urine Cocaine Screen Neg (NEG) Urine Cannabinoids Screen Neg (NEG) Urine Ethyl Alcohol Neg (NEG) SARS-CoV-2 Antigen (Rapid) Negative (NEGATIVE) ASSESSMENT/PLAN Assessment/Plan 1. Weakness, low back pain; CT head without acute changes 2. Chronic diastolic CHF; NT pro BNP mildly elevated, but CXR without pulm edema and no clinical evidence of fluid overload 3. CAD s/p PCI/stent; clinically stable. Follows with [facility] Sinus bradycardia; lowest 44 overnight. No pauses. Presently 66 4. Hypertension; elevated 5. Hyperlipidemia; statin 6. Diabetes, II Recommendations Resume secondary prevention Decrease coreg to 6.25mg with bradycardia Appears compensated. Resume HCTZ. No clinical indication for aggressive diuresis at this time PT/OT Supportive care Follow up with primary reel and rewinder operator upon discharge. ARMANDO JOHNSON APRN Apr 26, 2021 08:38
[2021-04-26] MEDS ORDERED: ASPIRIN 325 MG TABLET PO SCH (09:00)
[2021-04-26] MEDS ORDERED: HYDR-2759 PO (09:25)
[2021-04-26] MEDS ORDERED: hydroCHLOROthiazide 25 MG TABLET. PO SCH (11:00)
[2021-04-26 11:47] VITALS: BP 149/73
[2021-04-26] MEDS ORDERED: metFORMIN XR 500 MG TAB.ER.24H PO SCH (12:30)
[2021-04-26] MEDS: ATORVASTATIN CALCIUM 20 MG TABLET PO SCH (12:46)
[2021-04-26] MEDS: HYDROcodone/APAP 5/325MG 1 TAB TABLET PO PRN ×2 (12:46→19:37)
[2021-04-26] MEDS: FAMOTIDINE 20 MG TABLET PO SCH ×2 (12:47→21:16)
[2021-04-26] MEDS: LISINOPRIL 20 MG TABLET PO SCH (12:47)
[2021-04-26] MEDS ORDERED: IPRATRPIUM/ALBUTEROL 0.5/2.5MG 3 ML NEBU. NEB PRN (13:00)
[2021-04-26] MEDS ORDERED: IOHEXOL 350 MG/ML 100 ML VIAL. IV ONE (13:00)
--- NOTE | 2021-04-26 14:14 | HP ---
DATE OF SERVICE: 04/26/2021 ADMIT DATE: 04/26/2021 HISTORY OF PRESENT ILLNESS: The patient is an 86-year-old male patient who presented to the Emergency Room with a complaint of increased weakness, but was unable, as he was extremely weak to go to the bathroom to urinate and therefore, the patient was brought by the emergency medical service personnel for further evaluation. He was admitted to this hospital recently on 04/02/2021. There were no changes in his medication. No recent travel, no specific ill contact. He, at that time, did complain of pain in his back that radiates to the right leg and we did a CT scan of the lumbar spine as well as a bone scan that were unrevealing. He was extensively investigated in the Emergency Room and has had lab work and chest x-ray. His chest x-ray showed that cardiomediastinal silhouette is within normal limits. Lungs are clear. There is no significant pleural effusion, no pulmonary vascular congestion or pneumothorax. No suspicious osseous abnormality, and his lab work showed that his blood count was generally normal. He has mild hyponatremia and hypokalemia. His D-dimer was high at 1.09; however, PT/INR and APTT were normal. Urinalysis essentially unremarkable and toxic screen was positive for opiates. The patient was admitted for further evaluation with diagnosis of generalized weakness, hyponatremia, hypokalemia and mild normochromic normocytic anemia. PAST MEDICAL HISTORY: Significant for type 2 diabetes mellitus, hypertension, hyperlipidemia. He is known to have benign prostatic hypertrophy. Prostate cancer apparently was treated according to him with 40 radiation treatments. He also had coronary artery disease status post PCI with stent deployment x2. Has generalized osteoarthritis and chronic low back pain. He does have also T12 compression fracture that seems to be chronic. PAST SURGICAL HISTORY: Significant for bilateral cataract extraction, bilateral total hip arthroplasty and angioplasty and stent deployment. ALLERGIES: He has no known drug allergies. FAMILY HISTORY: Noncontributory. SOCIAL HISTORY: He lives alone. He does not smoke, drink alcohol or use any recreational drugs. REVIEW OF SYSTEMS: As per history of present illness. MEDICATIONS: He is currently on the following medications: He is on atorvastatin calcium 80 mg once a day, carvedilol 12.5 mg twice a day, lisinopril 40 mg daily, hydrocodone/APAP 5/325 one tablet every 6 hours, hydrochlorothiazide 50 mg daily, famotidine 20 mg once a day, and metformin 500 mg once a day. PHYSICAL EXAMINATION: GENERAL: On arrival to the Emergency Room, he looked well and was clearly in no apparent distress. He was somewhat pale, not jaundiced or cyanosed. No lymphadenopathy, no thyromegaly, no jugular venous distention. No lower limb edema. VITAL SIGNS: His heart rate was 67, blood pressure was 164/113, his temperature was 98.2, respiratory rate was 16 and oxygen saturation was 97% on room air. HEAD, EYES, EARS, NOSE, AND THROAT: Normocephalic, atraumatic. NECK: Supple. HEART: Showed normal first and second heart sounds. No gallop, rub or murmur. CHEST: Clear to auscultation, no crepitation or rhonchi. ABDOMEN: Scaphoid, soft, nontender. NEUROLOGIC: He is awake, alert, responding appropriately. All cranial nerves intact. He moves extremities without difficulty. His intake and output completely recorded. LABORATORY DATA: Showed a white cell count 7400, hemoglobin 12, hematocrit 36, MCV 93 and platelet count 285,000. His serum sodium is 130, potassium 3.4, chloride 93, bicarbonate 30, anion gap of 7, BUN 23, creatinine 1.1. Estimated GFR was 63 mL per minute. His glucose 134, calcium was 9, magnesium was 1.9. Total bilirubin, AST, ALT, alkaline phosphatase were normal. CK was 184. Troponin was less than 42. His beta natriuretic peptide was 676. Total protein was 6.5, albumin was 3.1. His D-dimer was 1.09, however, prothrombin time/INR and APTT are all normal. Urinalysis essentially unremarkable and was negative for ketones, nitrite, leukocyte esterase, no rbc's, no wbc's and no bacteria. His toxic screen was positive for opioids. ASSESSMENT AND PLAN: The patient has generalized weakness and inability to walk, with chronic back pain that radiates to the right lower extremity. Has hyponatremia, hypokalemia, and mild anemia. My plan is to discontinue his hydrochlorothiazide. Continue with pain management. Continue with physical and occupational therapy and apparently the patient and his son are now in agreement that he needs to be admitted to either assisted living facility or prison facility. JEFRY/CLARKE/NANNETTE DR: JEFRY/blake TID: [id number]
[2021-04-26 16:19] VITALS: BP 156/73
[2021-04-26] MEDS: CARVEDILOL 6.25 MG TABLET PO SCH (16:21)
--- NOTE | 2021-04-26 17:00 | RAD ---
EXAM: Study: CT CHEST WITH CONTRAST - PULMONARY ANGIOGRAM History: Recurrent falls, elevated d-dimer Comparison: Chest radiograph 04/26/2021 Technique: Helical CT of the chest performed after the administration of 79 mL intravenous contrast and timed for angiographic evaluation of the pulmonary arteries per PE protocol. Coronal and sagittal 3D MIP reformations were obtained. One or more of the following individualized dose reduction techniques were utilized for this examinat ion: 1. Automated exposure control 2. Adjustment of the mA and/or kV according to patient size 3. Use of iterative reconstruction technique. Findings: Pulmonary Arteries: Contrast bolus is adequate. There is no acute pulmonary embolism. Heart/Systemic Vasculature: Heart is normal size. No pericardial effusion. Coronary artery calcificat ions are noted. The thoracic aorta is normal in caliber. Mediastinum: Prominent right hilar lymph node, nonspecific. Lungs: Mild confluent opacities in the posterior lower lobes, likely atelectasis. There is a 3 mm sub pleural nodule in the right lower lobe (image 51, series 3). 3 mm nodule in the right middle lobe (im age 63, series 9). There is a calcified granuloma in the lingula. Central airways are clear. No pleur al effusion. Neck/Axilla/Body Wall: No axillary lymphadenopathy. Chest wall is unremarkable. Right thyroid lobe is prominent. Upper Abdomen: There is cholelithiasis. There is a 3.2 cm indeterminate left adrenal nodule. 4.4 cm s imple cyst in the left kidney. There is a 1.0 cm fluid density cystic lesion in the pancreatic neck. Bones: There is a old fracture versus sclerotic lesion in the right lateral third rib. There is moder ate multilevel degenerative disc disease with chronic appearing endplate deformities and degenerative endplate sclerosis at multiple levels. IMPRESSION: 1. No acute pulmonary embolism. 2. Mild dependent opacities in the lower lobes, likely atelectasis. 3. There are two 3 mm nodules in the right lung. In a low risk patient, no follow-up is indicated. I f the patient is at high risk for lung cancer, an optional [address] could be obtained. 4. Old fracture versus sclerotic lesion in the right lateral third rib. 5. Cholelithiasis. 6. 3.2 cm indeterminate left adrenal nodule. Recommend CT or MRI with adrenal mass protocol to [facility] evaluate. 7. 1 cm hypodense lesion in the pancreatic neck. This could be a cyst or intraductal papillary mucin ous neoplasm. Electronically signed by: Angely Shafer MD (04/26/2021 4:57 PM) [id number]
[2021-04-26 18:42] LABS: THYROID STIM HORMONE (TSH) 1.364 uIU/mL (0.358-3.740)
[2021-04-26 19:44] VITALS: BP 114/65
[2021-04-26] MEDS ORDERED: CARVEDILOL 12.5 MG TABLET PO SCH (21:00)
[2021-04-26 23:00] VITALS: BP 134/62
[2021-04-27 06:06] VITALS: BP 165/74
[2021-04-27 06:53] LABS: CALCIUM 8.7 mg/dL (8.5-10.1); CREATININE 0.8 mg/dL (0.7-1.3); GFR 91.7
[2021-04-27 07:02] LABS: BASO % 0 % (0-3); EOS # 0.2 x10^3/uL (0.0-0.7); EOS % 2 % (0-3); HEMOGLOBIN 12.7 g/dL (13.0-17.5); LYMPH # 1.4 x10^3/uL (1.0-4.8); LYMPH % 15 % (24-48); MEAN CORPUSCULAR HEMOGLOBIN 32 pg (25-35); MEAN CORPUSCULAR HGB CONC 34 g/dL (31-37); MEAN CORPUSCULAR VOLUME 93 fL (79-100); MONO # 0.7 x10^3/uL (0.0-1.1); MONO % 8 % (0-9); NEUT # 6.9 x10^3uL (1.8-7.7); NEUT % 75 % (31-73); PLATELET COUNT 295 x10^3/uL (140-400); RED BLOOD COUNT 3.99 x10^6/uL (4.30-5.70); RED CELL DISTRIBUTION WIDTH 13.6 % (11.5-14.5); WHITE BLOOD COUNT 9.2 x10^3/uL (4.0-11.0)
[2021-04-27] MEDS: FAMOTIDINE 20 MG TABLET PO SCH ×2 (08:35→21:07)
[2021-04-27] MEDS: ENOXAPARIN 40 MG/0.4 ML SYRINGE. SQ SCH (08:35)
[2021-04-27] MEDS: ATORVASTATIN CALCIUM 20 MG TABLET PO SCH (08:35)
[2021-04-27] MEDS: ASPIRIN ENTERIC COATED 81 MG TABLET.DR. PO SCH (08:36)
--- NOTE | 2021-04-27 08:36 | PDOC ---
CARDIO Progress Notes Date & Time Date of Service DATE: 04/27/21 TIME: 08:35 Time of Evaluation 08:35 Subjective Notes No chest pain, shortness of breath, or LE edema Vitals Vitals Vital Signs Date Time Temp Pulse Resp B/P (MAP) Pulse Ox O2 Delivery O2 Flow Rate FiO2 04/27/21 06:06 97.5 50 18 165/74 (104) 100 Room Air Weight Weight [ ] Input and Output I.O. Intake and Output 04/27/21 07:00 Intake Total 1070 ml Output Total 200 ml Balance 870 ml Intake Oral 1070 ml Output Urine Total 200 ml # Voids 3 # Bowel Movements 2 Laboratory Labs Laboratory Tests Test 04/26/21 00:11 04/26/21 00:31 04/26/21 00:48 04/26/21 03:25 White Blood Count 7.4 x10^3/uL (4.0-11.0) Red Blood Count 3.91 x10^6/uL (4.30-5.70) Hemoglobin 12.4 g/dL (13.0-17.5) Hematocrit 36.5 % (39.0-53.0) Mean Corpuscular Volume 93 fL (79-100) Mean Corpuscular Hemoglobin 32 pg (25-35) Mean Corpuscular Hemoglobin Concent 34 g/dL (31-37) Red Cell Distribution Width 13.3 % (11.5-14.5) Platelet Count 285 x10^3/uL (140-400) Neutrophils (%) (Auto) 67 % (31-73) Lymphocytes (%) (Auto) 21 % (24-48) Monocytes (%) (Auto) 9 % (0-9) Eosinophils (%) (Auto) 3 % (0-3) Basophils (%) (Auto) 1 % (0-3) Neutrophils # (Auto) 4.9 x10^3uL (1.8-7.7) Lymphocytes # (Auto) 1.6 x10^3/uL (1.0-4.8) Monocytes # (Auto) 0.6 x10^3/uL (0.0-1.1) Eosinophils # (Auto) 0.2 x10^3/uL (0.0-0.7) Basophils # (Auto) 0.0 x10^3/uL (0.0-0.2) Prothrombin Time 10.2 SEC (9.4-11.4) Prothromb Time International Ratio 1.0 (0.9-1.1) Activated Partial Thromboplast Time 24 SEC (23-33) D-Dimer (Jolynn) 1.09 mg/L (0.00-0.50) Sodium Level 130 mmol/L (136-145) Potassium Level 3.4 mmol/L (3.5-5.1) Chloride Level 93 mmol/L (98-107) Carbon Dioxide Level 30 mmol/L (21-32) Anion Gap 7 (6-14) Blood Urea Nitrogen 23 mg/dL (8-26) Creatinine 1.1 mg/dL (0.7-1.3) Estimated GFR (Cockcroft-Gault) 63.5 Glucose Level 134 mg/dL (70-99) Calcium Level 9.0 mg/dL (8.5-10.1) Magnesium Level 1.9 mg/dL (1.8-2.4) Total Bilirubin 0.8 mg/dL (0.2-1.0) Direct Bilirubin 0.2 mg/dL (0.0-0.2) Aspartate Amino Transf (AST/SGOT) 36 U/L (15-37) Alanine Aminotransferase (ALT/SGPT) 27 U/L (16-63) Alkaline Phosphatase 66 U/L (46-116) Creatine Kinase 184 U/L (39-308) Troponin I High Sensitivity 44 ng/L (4-75) 45 ng/L (4-75) XK-Tyv-W-Type Natriuretic Peptide 676 pg/mL (0-449) Total Protein 6.5 g/dL (6.4-8.2) Albumin 3.1 g/dL (3.4-5.0) Triglycerides Level 64 mg/dL (0-150) Cholesterol Level 130 mg/dL (0-200) LDL Cholesterol, Calculated 75 mg/dL (0-100) VLDL Cholesterol, Calculated 12 mg/dL (0-40) Non-HDL Cholesterol Calculated 87 mg/dL (0-129) HDL Cholesterol 43 mg/dL (40-60) Cholesterol/HDL Ratio 3.0 Lipase 154 U/L (73-393) Thyroid Stimulating Hormone (TSH) 1.364 uIU/mL (0.358-3.740) Urine Collection Type Unknown Urine Color Yellow Urine Clarity Clear Urine pH 7.5 Urine Specific [place] 1.020 Urine Protein Neg (NEG-TRACE) Urine Glucose (UA) Neg mg/dL (NEG) Urine Ketones (Stick) Neg mg/dL (NEG) Urine Blood Neg (NEG) Urine Nitrite Neg (NEG) Urine Bilirubin Neg (NEG) Urine Urobilinogen Dipstick 1.0 mg/dL (0.2 mg/dL) Urine Leukocyte Esterase Neg (NEG) Urine RBC 0 /HPF (0-2) Urine WBC Rare /HPF (0-4) Urine Squamous Epithelial Cells Occ /LPF Urine Bacteria 0 /HPF (0-FEW) Urine Opiates Screen Pos (NEG) Urine Methadone Screen Neg (NEG) Urine Barbiturates Neg (NEG) Urine Phencyclidine Screen Neg (NEG) Urine Amphetamine/Methamphetamine Neg (NEG) Urine Benzodiazepines Screen Neg (NEG) Urine Cocaine Screen Neg (NEG) Urine Cannabinoids Screen Neg (NEG) Urine Ethyl Alcohol Neg (NEG) Coronavirus (COVID-19)(PCR) Not detected (NOT DETECTD) SARS-CoV-2 Antigen (Rapid) Negative (NEGATIVE) Test 04/26/21 07:23 04/26/21 11:23 04/27/21 06:30 Troponin I High Sensitivity 42 ng/L (4-75) Glucose (Fingerstick) 87 mg/dL (70-99) White Blood Count 9.2 x10^3/uL (4.0-11.0) Red Blood Count 3.99 x10^6/uL (4.30-5.70) Hemoglobin 12.7 g/dL (13.0-17.5) Hematocrit 37.0 % (39.0-53.0) Mean Corpuscular Volume 93 fL (79-100) Mean Corpuscular Hemoglobin 32 pg (25-35) Mean Corpuscular Hemoglobin Concent 34 g/dL (31-37) Red Cell Distribution Width 13.6 % (11.5-14.5) Platelet Count 295 x10^3/uL (140-400) Neutrophils (%) (Auto) 75 % (31-73) Lymphocytes (%) (Auto) 15 % (24-48) Monocytes (%) (Auto) 8 % (0-9) Eosinophils (%) (Auto) 2 % (0-3) Basophils (%) (Auto) 0 % (0-3) Neutrophils # (Auto) 6.9 x10^3uL (1.8-7.7) Lymphocytes # (Auto) 1.4 x10^3/uL (1.0-4.8) Monocytes # (Auto) 0.7 x10^3/uL (0.0-1.1) Eosinophils # (Auto) 0.2 x10^3/uL (0.0-0.7) Basophils # (Auto) 0.0 x10^3/uL (0.0-0.2) Sodium Level 130 mmol/L (136-145) Potassium Level 3.0 mmol/L (3.5-5.1) Chloride Level 95 mmol/L (98-107) Carbon Dioxide Level 32 mmol/L (21-32) Anion Gap 3 (6-14) Blood Urea Nitrogen 15 mg/dL (8-26) Creatinine 0.8 mg/dL (0.7-1.3) Estimated GFR (Cockcroft-Gault) 91.7 Glucose Level 117 mg/dL (70-99) Calcium Level 8.7 mg/dL (8.5-10.1) Physical Exams HEENT: Neck Supple W Full Motion Chest: Symmetric Lungs: Clear to Auscultation Heart: RRR Abdomen: Soft N/T Extremities: No Edema Neurology: alert, oriented, follow commands Assessment Assessment 1. Weakness, chronic low back pain; CT head without acute changes 2. Chronic diastolic CHF; NT pro BNP mildly elevated, but CXR without pulm edema and no clinical evidence of fluid overload. appears compensated. 3. CAD s/p PCI/stent; clinically stable. Follows with [facility] 4. Sinus bradycardia; lowest 44 overnight. No pauses. Presently 55 5. Hypertension; intermittently elevated 6. Hyperlipidemia; statin 7. Diabetes, II 8. Hyponatremia, hypokalemia 9. Elevated d-dimer; CTA negative for PE. right lung nodule, left adrenal nodule, hypodense lesion in the pancreatic neck, and cholelithiasis were noted. Recommendations Replace K. Check Mg and replace as warranted Will decrease Coreg to 3.125mg. Monitor BP trends. Add amlodipine if BP remains elevated Secondary prevention PT/OT Supportive care Rehab upon discharge Follow up with primary ad operations intern upon discharge. ARMANDO JOHNSON APRN Apr 27, 2021 08:36
[2021-04-27] MEDS: LISINOPRIL 20 MG TABLET PO SCH (08:37)
[2021-04-27] MEDS: CARVEDILOL 6.25 MG TABLET PO SCH ×2 (08:37→16:23)
[2021-04-27] MEDS ORDERED: POTASSIUM CHLORIDE 20 MEQ TABLET.ER. PO ONE ×2 (08:45→14:45)
[2021-04-27 10:29] VITALS: BP 137/80
[2021-04-27] MEDS: HYDROcodone/APAP 5/325MG 1 TAB TABLET PO PRN ×2 (10:31→21:07)
[2021-04-27 14:41] VITALS: BP 129/72
--- NOTE | 2021-04-27 16:54 | NUR ---
Nursing note PT in bed, was able to walk down the kitchen way with PT, verbalized pain, pain medication administered, will be transferred to [place] when discharged from the hospital. medications administered as ordered. bed low call light within reach. PT verbalized no other needs.
[2021-04-27 19:50] VITALS: BP 158/72
[2021-04-27 23:26] VITALS: BP 160/79
[2021-04-28] MEDS: HYDROcodone/APAP 5/325MG 1 TAB TABLET PO PRN ×2 (03:00→09:00)
[2021-04-28 06:12] LABS: CALCIUM 8.5 mg/dL (8.5-10.1); CREATININE 0.8 mg/dL (0.7-1.3); GFR 91.7; POTASSIUM 3.9 mmol/L (3.5-5.1)
[2021-04-28 06:29] VITALS: BP 175/83
[2021-04-28] MEDS: FAMOTIDINE 20 MG TABLET PO SCH (07:48)
[2021-04-28] MEDS: ATORVASTATIN CALCIUM 20 MG TABLET PO SCH (07:49)
[2021-04-28] MEDS: CARVEDILOL 6.25 MG TABLET PO SCH (07:50)
[2021-04-28] MEDS: ASPIRIN ENTERIC COATED 81 MG TABLET.DR. PO SCH (07:50)
[2021-04-28] MEDS: LISINOPRIL 20 MG TABLET PO SCH (07:51)
[2021-04-28] MEDS: ENOXAPARIN 40 MG/0.4 ML SYRINGE. SQ SCH (07:52)
--- NOTE | 2021-04-28 08:32 | PN ---
DATE: 04/27/2021 SUBJECTIVE: The patient is resting, slightly propped up in bed, no apparent distress, continued to complain of low back pain that radiates to the right lower extremity; however, he has been up and about, walking with a walker with physical therapy. Denied any other complaint, in particular denied any nausea, vomiting, or diarrhea. PHYSICAL EXAMINATION: GENERAL: When I examined him, he looked well and was clearly in no apparent respiratory distress. No pallor, jaundice, cyanosis or thyromegaly. No jugular venous distention. No limb edema. VITAL SIGNS: His heart rate was 64, blood pressure is 137/80, temperature was 97.6, respiratory rate was 16, and oxygen saturation was 98%. HEAD, EYES, EARS, NOSE, AND THROAT: Normocephalic, atraumatic. NECK: Supple. HEART: Showed normal first and second heart sounds, no gallop or murmur. CHEST: Clear to auscultation, no crepitation or rhonchi. ABDOMEN: Distended, soft, nontender. NEUROLOGIC: He was grossly intact. His intake and output were incompletely recorded. LABORATORY DATA: This morning showed a serum sodium 130, potassium 3, chloride 95, bicarbonate 32, anion gap of 3, BUN 15, creatinine 0.8. Estimated GFR was 92 mL per minute. His glucose 117, calcium was 8.7, and magnesium was 1.7. His prothrombin time/INR and APTT were normal. D-dimer was slightly elevated. Urinalysis essentially unremarkable and toxic screen was positive for opiates. ASSESSMENT: 1. Generalized weakness. 2. Chronic low back pain. The patient has T12 compression fracture, seemed to be chronic. 3. Chronic diastolic congestive heart failure. 4. Coronary artery disease status post percutaneous coronary intervention with stent deployment, clinically stable. He is chest pain free. 5. Sinus bradycardia. 6. Hypertension. 7. Hyperlipidemia. 8. Type 2 diabetes mellitus. 9. Hyponatremia. 10. Hypokalemia. 11. Elevated D-dimer; however, CT angio was negative for pulmonary embolism. PLAN: My plan is to replenish his potassium. For some reason, the patient is dropping his sodium and potassium. He is not on any diuretics that can cause ____. Denied any diarrhea or constipation. Denied any hematemesis or melena. Denied any nausea or vomiting. I will replenish his potassium. Repeat his lab work again. The family wanted him to go to [facility]. JEFRY/ALVAREZ/KATHERINE DR: JEFRY/blake TID: [id number]
[2021-04-28] MEDS ORDERED: FINASTERIDE 5 MG TABLET. PO SCH (09:00)
[2021-04-28] MEDS ORDERED: metFORMIN XR 500 MG TAB.ER.24H PO SCH (09:00)
[2021-04-28] MEDS ORDERED: MAGNESIUM SULFATE 2GM 50 ML IV ONE (09:15)
--- NOTE | 2021-04-28 09:17 | PDOC ---
CARDIO Progress Notes Date & Time Date of Service DATE: 04/28/21 TIME: 09:07 Time of Evaluation 09:07 Vitals Vitals Vital Signs Date Time Temp Pulse Resp B/P (MAP) Pulse Ox O2 Delivery O2 Flow Rate FiO2 04/28/21 09:00 98 Room Air 04/28/21 07:51 56 175/83 04/28/21 06:29 97.9 18 Weight Weight [ ] Input and Output I.O. Intake and Output 04/28/21 07:00 Intake Total 980 ml Balance 980 ml Intake Oral 980 ml # Voids 22 # Bowel Movements 1 Laboratory Labs Laboratory Tests Test 04/26/21 11:23 04/27/21 06:30 04/28/21 05:48 Glucose (Fingerstick) 87 mg/dL (70-99) White Blood Count 9.2 x10^3/uL (4.0-11.0) Red Blood Count 3.99 x10^6/uL (4.30-5.70) Hemoglobin 12.7 g/dL (13.0-17.5) Hematocrit 37.0 % (39.0-53.0) Mean Corpuscular Volume 93 fL (79-100) Mean Corpuscular Hemoglobin 32 pg (25-35) Mean Corpuscular Hemoglobin Concent 34 g/dL (31-37) Red Cell Distribution Width 13.6 % (11.5-14.5) Platelet Count 295 x10^3/uL (140-400) Neutrophils (%) (Auto) 75 % (31-73) Lymphocytes (%) (Auto) 15 % (24-48) Monocytes (%) (Auto) 8 % (0-9) Eosinophils (%) (Auto) 2 % (0-3) Basophils (%) (Auto) 0 % (0-3) Neutrophils # (Auto) 6.9 x10^3uL (1.8-7.7) Lymphocytes # (Auto) 1.4 x10^3/uL (1.0-4.8) Monocytes # (Auto) 0.7 x10^3/uL (0.0-1.1) Eosinophils # (Auto) 0.2 x10^3/uL (0.0-0.7) Basophils # (Auto) 0.0 x10^3/uL (0.0-0.2) Sodium Level 130 mmol/L (136-145) 132 mmol/L (136-145) Potassium Level 3.0 mmol/L (3.5-5.1) 3.9 mmol/L (3.5-5.1) Chloride Level 95 mmol/L (98-107) 98 mmol/L (98-107) Carbon Dioxide Level 32 mmol/L (21-32) 30 mmol/L (21-32) Anion Gap 3 (6-14) 4 (6-14) Blood Urea Nitrogen 15 mg/dL (8-26) 16 mg/dL (8-26) Creatinine 0.8 mg/dL (0.7-1.3) 0.8 mg/dL (0.7-1.3) Estimated GFR (Cockcroft-Gault) 91.7 91.7 Glucose Level 117 mg/dL (70-99) 116 mg/dL (70-99) Calcium Level 8.7 mg/dL (8.5-10.1) 8.5 mg/dL (8.5-10.1) Magnesium Level 1.7 mg/dL (1.8-2.4) Physical Exams HEENT: Neck Supple W Full Motion Chest: Symmetric Lungs: Clear to Auscultation Heart: RRR Abdomen: Soft N/T Extremities: No Edema Neurology: alert, oriented, follow commands Assessment Assessment 1. Weakness, chronic low back pain; CT head without acute changes 2. Chronic diastolic CHF; NT pro BNP mildly elevated, but CXR without pulm edema and no clinical evidence of fluid overload. appears compensated. 3. CAD s/p PCI/stent; clinically stable. Follows with MAC 4. Sinus bradycardia; lowest 44 overnight. No pauses. Presently 65 5. Hypertension; elevated 6. Hyperlipidemia; statin 7. Diabetes, II 8. Hypomagnesemia 9. Elevated d-dimer; CTA negative for PE. right lung nodule, left adrenal nodule, hypodense lesion in the pancreatic neck, and cholelithiasis were noted. Recommendations Replace Mg Add amlodipine for BP control Secondary prevention Supportive care Rehab Follow up with primary inventory worker upon discharge. ARMANDO JOHNSON APRN Apr 28, 2021 09:17
[2021-04-28] MEDS ORDERED: amLODIPine BESYLATE 5 MG TABLET PO SCH (09:30)
--- NOTE | 2021-04-28 10:00 | DISCH ---
DISCHARGE ORDERS DISCHARGE DATE: Apr 28, 2021 FINAL DIAGNOSIS Generalized weakness chronic back pain CONDITION AT DISCHARGE: Stable Code Status: Full SNF STAY <30 DAYS: Yes POST DISCHARGE ORDERS: ACTIVITY ORDERS: Activity as tolerated DIET AFTER DISCHARGE: Regular TREATMENT/EQUIPMENT ORDERS: ADAPTIVE EQUIPMENT NEEDED: None DISCHARGE MEDICATIONS: Home Meds Active Scripts Hydrocodone Bit/Acetaminophen (HYDROCODONE-APAP 5-325 ) 1 Each Tablet, 1 TAB PO PRN Q6HRS PRN for PAIN for 15 Days, #60 TAB 0 Refills Prov:JOANNA KLEIN MD 04/04/21 Reported Medications Carvedilol (Carvedilol) 12.5 Mg Tablet, 1 TAB PO BID for HTN 04/02/21 Atorvastatin Calcium (Atorvastatin Calcium) 80 Mg Tablet, 1 TAB PO DAILY for HLD 04/02/21 Metformin Hcl (METFORMIN HCL ER) 500 Mg Tab.er.24h, 1 TAB PO DAILY for DM 04/02/21 Hydrochlorothiazide (HYDROCHLOROTHIAZIDE TABLET) 50 Mg Tablet, 1 TAB PO DAILY for CHF 04/02/21 Famotidine (FAMOTIDINE) 20 Mg Tablet, 1 TAB PO BID for gerd 04/02/21 Lisinopril (LISINOPRIL) 40 Mg Tablet, 1 TAB PO DAILY for htn 04/02/21 JOANNA KLEIN MD Apr 28, 2021 10:00
[2021-04-28 10:05] VITALS: BP 154/78
--- NOTE | 2021-04-28 11:01 | DS ---
DATE OF DISCHARGE: 04/28/2021 HOSPITAL COURSE: The patient is an 86-year-old male patient who presented to the Emergency Room again with generalized weakness and chronic low back pain. He also had chronic diastolic congestive heart failure as well as hypokalemia and hyponatremia. He was seen in consultation by the Cardiology team and his blood pressure was somewhat high, therefore amlodipine was added. PHYSICAL EXAMINATION: GENERAL: When I saw him today, he looked well and was clearly in no apparent respiratory distress. No pallor, jaundice, cyanosis, or thyromegaly. No jugular venous distention. No limb edema. VITAL SIGNS: His his heart rate was 56, blood pressure 175/83, temperature was 97.9. Respiratory rate was 18 and oxygen saturation was 98%. HEAD, EYES, EARS, NOSE, AND THROAT: Showed normocephalic, atraumatic. NECK: Supple. HEART: Showed normal first and second heart sounds. No gallop, rub, or murmur. CHEST: Clear to auscultation. No crepitation or rhonchi. ABDOMEN: Distended, soft, nontender. NEUROLOGIC: He was awake, alert, responding appropriately. Cranial nerves intact. He moves extremities without difficulty, ambulates with a walker. His intake over the last 24 hours was 1070. No output was recorded. LABORATORY DATA: As of this morning, his sodium is up to 132, potassium 3.9, chloride 98, bicarbonate 30, anion gap of 4, BUN 16, creatinine 0.8. Estimated GFR was 92 mL per minute. His glucose was 116, calcium was 8.5, magnesium was 1.7. His white cell count was 9200, hemoglobin 13, hematocrit 37, MCV 93, and platelet count of 295,000 with normal manual differential. DISCHARGE MEDICATIONS: The patient was discharged to [place] to continue on tamsulosin 0.4 mg at bedtime, amlodipine 5 mg daily, magnesium oxide 400 mg 3 times a day, finasteride 5 mg daily, metformin 500 mg daily, carvedilol 3.125 mg twice a day, aspirin 81 mg once a day, hydrocodone/APAP 1 tablet every 6 hours, lisinopril 40 mg once a day, atorvastatin calcium 80 mg daily, and famotidine 20 mg twice a day. FINAL DISCHARGE DIAGNOSES: 1. Generalized weakness for which obviously we will discharge to [facility] to continue with the process of rehabilitation. 2. Chronic back pain. The patient has T12 compression fracture that seemed to be chronic, although I will arrange for him to have an MRI of his lumbar spine given that the pain is radiating to his right lower extremity. 3. Chronic diastolic congestive heart failure, clinically well compensated. 4. Coronary artery disease status post percutaneous coronary intervention with stent deployment, clinically stable. He is chest pain-free. 5. Sinus bradycardia. 6. Hypertension, suboptimally controlled. 7. Hyperlipidemia for which he is on statin. 8. Type 2 diabetes mellitus. 9. Hyponatremia with sodium up to 132. 10. Hypokalemia, improved. 11. Elevated D-dimer; however, CT angiogram was negative for pulmonary embolism. JEFRY/ROBERTA/KIANA DR: Amparo TID: [id number]
[2021-04-28 11:05] VITALS: BP 154/78
--- NOTE | 2021-04-28 13:21 | NUR ---
PT DISCHARGED TO [facility]. PTS BELONGINGS WITH THE PT AT THE TIME OF DISCHARGE. REPORT CALLED TO [facility].
[2021-04-28] MEDS ORDERED: TAMSULOSIN 0.4 MG CAP.ER.24H. PO SCH (21:00)
== END 2021-04-28 10:10 | DRG 641 ==
LOC: ER 23:49 → 1 SOUTH 04-26 01:16
PROVIDERS: ADMIT Internal Medicine; ATTEND Internal Medicine
DX: E87.1 Hypo-osmolality and hyponatremia (principal); I50.32 Chronic diastolic (congestive) heart failure; M48.54XA Collapsed vertebra, not elsewhere classified, thoracic region, initial encounter for fracture; E11.9 Type 2 diabetes mellitus without complications; I25.10 Atherosclerotic heart disease of native coronary artery without angina pectoris; I11.0 Hypertensive heart disease with heart failure; E78.5 Hyperlipidemia, unspecified; M15.9 Polyosteoarthritis, unspecified; G89.29 Other chronic pain; D64.9 Anemia, unspecified; E83.42 Hypomagnesemia; E87.6 Hypokalemia; F03.90 Unspecified dementia, unspecified severity, without behavioral disturbance, psychotic disturbance, mood disturbance, and anxiety; N40.0 Benign prostatic hyperplasia without lower urinary tract symptoms; K21.9 Gastro-esophageal reflux disease without esophagitis; Z96.643 Presence of artificial hip joint, bilateral; Z98.41 Cataract extraction status, right eye; Z98.42 Cataract extraction status, left eye; Z95.5 Presence of coronary angioplasty implant and graft; Z85.46 Personal history of malignant neoplasm of prostate; Z82.3 Family history of stroke; Z20.822 Contact with and (suspected) exposure to COVID-19
CPT/HCPCS: 36415; 70450; 71045; 71275; 80048; 80061; 80076; 80307; 81001; 82550; 82947; 83690; 83735; 83880; 84443; 84484; 85025; 85379; 85610; 85730; 87426; 93005; 94640; 96360; J1650; J3475; J7120; Q9967; U0003; 97530; 97535; 99285-25

== ENCOUNTER 2021-06-18 00:58 | Emergency (ER) | payer MEDICARE ==
[~2021-06-18] VITALS: Ht 180.3 cm; Wt 75.2 kg
[~2021-06-18 00:58] MED LIST changes: +HYDR-2759 PO
[2021-06-18 01:07] VITALS: BP 147/86
--- NOTE | 2021-06-18 01:52 | PHYS DOC ---
Past History Past Medical History: Arthritis, CAD, CHF, Diabetes Past Surgical History: Hip Replacement Alcohol Use: Rarely General Adult EDM: Chief Complaint: ANKLE PROBLEM HPI: HPI: ".. I was having really bad arthritis pain in my Rt. ankle .. I took one of my pain pills.. but I was hurting so bad.. I call ed the ambulance... but.. now I am fine.. I don't need any labs.. or xrays.. I just want to go home..." Patient is a 86 year old MALE who presents with acute exacerbation of his chronic Rt. ankle pain. Patient took one of his hydrocodone and called the ambulance. By the time patient got here his pain was relieved. Patient now requesting discharge for any work-up or evaluation. Pt. follows with Dr. Raza. Pt. is accompanied with his daughter. Patient has history of coronary artery disease, diabetes, arthritis, CHF. Review of Systems: Review of Systems: Constitutional: Denies fever or chills Eyes: Denies change in visual acuity HENT: Denies nasal congestion or sore throat Respiratory: Denies cough or shortness of breath Cardiovascular: Denies chest pain or edema GI: Denies abdominal pain, nausea, vomiting, bloody stools or diarrhea : Denies dysuria Musculoskeletal: Complaints of right ankle pain which is now resolved Integument: Denies rash Neurologic: Denies headache, focal weakness or sensory changes Endocrine: Denies polyuria or polydipsia Lymphatic: Denies swollen glands Psychiatric: Denies depression or anxiety Family History: Family History: Noncontributory to presentation Current Medications: Current Meds: See nursing for home meds Allergies: Allergies: Allergies Coded Allergies Type Severity Reaction Last Updated Verified No Known Drug Allergies 04/02/21 No Physical Exam: PE: Constitutional: no acute distress, non-toxic appearance. [] HENT: Normocephalic, atraumatic, bilateral external ears normal, oropharynx moist, no oral exudates, nose normal. [] Eyes: PERRLA, EOMI, conjunctiva normal, no discharge. [] Neck: Normal range of motion, no tenderness, supple, no stridor. [] Cardiovascular:Heart rate regular rhythm, no murmur [] Lungs & Thorax: Bilateral breath sounds equal at apex auscultation [] Abdomen: Bowel sounds normal, soft, no tenderness, no masses, no pulsatile masses. [] Skin: Warm, dry, no erythema, no rash. [] Back: No tenderness, no CVA tenderness. [] Extremities: Mild right ankle tenderness, no cyanosis, no clubbing, ROM intact, trace bilateral ankle edema. Arthritic changes. No cording. Neurologic: Alert and oriented X 3, normal motor function, normal sensory function, no focal deficits noted. [] Psychologic: Affect normal, judgement normal, mood normal. [] Current Patient Data: Vital Signs: Vital Signs Date Time Temp Pulse Resp B/P (MAP) Pulse Ox O2 Delivery O2 Flow Rate FiO2 06/18/21 01:07 98.8 70 18 147/86 (106) 98 Room Air EKG: EKG: Declined by patient [] Radiology/Procedures: Radiology/Procedures: Declined by patient [] Heart Score: C/O Chest Pain: N/A Risk Factors: Risk Factors: DM, Current or recent (<one month) smoker, HTN, HLP, family history of CAD, obesity. Risk Scores: Score 0 - 3: 2.5% MACE over next 6 weeks - Discharge Home Score 4 - 6: 20.3% MACE over next 6 weeks - Admit for Clinical Observation Score 7 - 10: 72.7% MACE over next 6 weeks - Early Invasive Strategies Course & Med Decision Making: Course & Med Decision Making Pertinent Labs and Imaging studies reviewed. (See chart for details) Patient declined lab work x-rays or further evaluation after arrival in the emergency department. Impression: 1. Arthritis 2. Exacerbation of right ankle arthritis [] Dragon Disclaimer: Dragon Disclaimer: This electronic medical record was generated, in whole or in part, using a voice recognition dictation system. Departure Departure: Referrals: AGATHA RAZA MD (PCP) Janine Disclaimer This chart was dictated in whole or in part using Voice Recognition software in a busy, high-work load, and often noisy Emergency Department environment. It may contain unintended and wholly unrecognized errors or omissions. HAI JOHNSON MD Jun 18, 2021 01:52
[2021-06-28] MEDS ORDERED: HYDR-2155 PO (11:10)
== END 2021-06-18 02:08 | disposition home or self-care (01) ==
LOC: ER 00:58
DX: M19.071 Primary osteoarthritis, right ankle and foot (principal); I25.10 Atherosclerotic heart disease of native coronary artery without angina pectoris; I50.9 Heart failure, unspecified; E11.9 Type 2 diabetes mellitus without complications
CPT/HCPCS: 99283

== ENCOUNTER 2021-06-25 05:08 | Inpatient (IN) | payer MEDICARE ==
[~2021-06-25] VITALS: Ht 180.3 cm; Wt 73.3 kg
--- NOTE | 2021-06-25 05:27 | PHYS DOC ---
Past History Past Medical History: Arthritis, CAD, CHF, Diabetes Past Surgical History: Hip Replacement Alcohol Use: Rarely Adult General HPI HPI Patient is a 86-year-old male with a past medical history significant for CAD, CHF, ejn-nfiloix-updhhynoc diabetes and arthritis who presents to the emergency department with multiple complaints of chronic joint pain in his back knees and ankles for which he takes hydrocodone. States it is about the same as it always is. States over the last year he has felt more confused than usual but nothing new over the last couple of days. States he wanted to come into the emergency department tonight because he lives at home by himself and does not have anybody there and is kind of afraid to be at home himself worried about falls and was wondering about being admitted back to [place]. Denies any recent travel, traumas, illnesses, fevers, chest pain, shortness of breath, abdominal pain, nausea, vomiting, dysuria, hematuria or blood in the stool. Review of Systems Review of Systems Review of systems otherwise unremarkable except noted in HPI Allergies Allergies Allergies Coded Allergies Type Severity Reaction Last Updated Verified No Known Drug Allergies 04/02/21 No Physical Exam Physical Exam Constitutional: Well developed, well nourished, no acute distress, non-toxic appearance. [] HENT: Normocephalic, atraumatic, bilateral external ears normal, oropharynx moist, no oral exudates, nose normal. [] Eyes: PERRLA, EOMI, conjunctiva normal, no discharge. [] Neck: Normal range of motion, no tenderness, supple, no stridor. [] Cardiovascular:Heart rate regular rhythm, no murmur [] Lungs & Thorax: Bilateral breath sounds clear to auscultation [] Abdomen: Bowel sounds normal, soft, no tenderness, no masses, no pulsatile masses. [] Skin: Warm, dry, no erythema, no rash. [] Back: No tenderness, Extremities: No tenderness, no cyanosis, no clubbing, ROM intact, 1+ pitting edema [] Neurologic: Alert and oriented X 3, normal motor function, normal sensory function, cranial nerves intact, NIH of 0 no focal deficits noted. [] Psychologic: Affect normal, judgement normal, mood normal. [] EKG EKG [] Radiology/Procedures Radiology/Procedures [] Heart Score C/O Chest Pain: No Risk Factors: Risk Factors: DM, Current or recent (<one month) smoker, HTN, HLP, family history of CAD, obesity. Risk Scores: Risk Factors: DM, Current or recent (<one month) smoker, HTN, HLP, family history of CAD, obesity. Course & Med Decision Making Course & Med Decision Making Patient is an 86-year-old male who presents with multiple complaints of body aches, arthritis and does not feel safe at home by himself and would like to be admitted back to [place] Vital signs notable for hypertension. Physical exam noted above. Patient placed on the monitor with IV access established. Given a work-up patient for admission to the [facility] unit and possible admission back to a SNF/[facility] [place] Patient care handed off to morning team for continued evaluation, treatment and disposition. [] Dragon Disclaimer Dragon Disclaimer This electronic medical record was generated, in whole or in part, using a voice recognition dictation system. Departure Departure: Disposition: ADMITTED INPATIENT Admitting Physician: Julianna Vasquez Condition: STABLE Referrals: AGATHA TRACEY MD (PCP) BAIRON SPENCER MD Jun 25, 2021 05:27
[2021-06-25 06:14] LABS: BASO # 0.1 x10^3/uL (0.0-0.2); BASO % 1 % (0-3); EOS # 0.1 x10^3/uL (0.0-0.7); EOS % 2 % (0-3); HEMATOCRIT 35.4 % (39.0-53.0); HEMOGLOBIN 11.9 g/dL (13.0-17.5); LYMPH # 1.3 x10^3/uL (1.0-4.8); LYMPH % 18 % (24-48); MEAN CORPUSCULAR HEMOGLOBIN 32 pg (25-35); MEAN CORPUSCULAR HGB CONC 34 g/dL (31-37); MEAN CORPUSCULAR VOLUME 94 fL (79-100); MONO # 0.6 x10^3/uL (0.0-1.1); MONO % 9 % (0-9); NEUT # 5.3 x10^3uL (1.8-7.7); NEUT % 71 % (31-73); PLATELET COUNT 319 x10^3/uL (140-400); RED BLOOD COUNT 3.76 x10^6/uL (4.30-5.70); RED CELL DISTRIBUTION WIDTH 13.5 % (11.5-14.5); WHITE BLOOD COUNT 7.4 x10^3/uL (4.0-11.0)
[2021-06-25 06:39] LABS: HEMOGLOBIN ISTAT 11.9 gm/dL; POTASSIUM ISTAT 3.2 mmol/L (3.5-5.0)
[2021-06-25] MEDS ORDERED: HYDROcodone/APAP 5/325MG 1 TAB TABLET PO ONE (06:45)
[2021-06-25 06:57] LABS: BILIRUBIN,URINE NEG (NEG); CLARITY,URINE CLEAR; COLOR,URINE YELLOW; GLUCOSE,URINE NEG (NEG)
[2021-06-25 06:58] LABS: BACTERIA,URINE 0 /HPF (0-FEW); NITRITE,URINE NEG (NEG); RBC,URINE 0 /HPF (0-2); SQUAMOUS EPITHELIAL CELL,UR OCC /LPF; UROBILINOGEN,URINE 0.2 mg/dL (0.2 mg/dL); WBC,URINE 0 /HPF (0-4)
[2021-06-25 09:00] VITALS: BP 176/78
[2021-06-25 10:31] LABS: ALBUMIN 2.9 g/dL (3.4-5.0); ALBUMIN/GLOBULIN RATIO 0.9 (1.0-1.7); CALCIUM 8.1 mg/dL (8.5-10.1)
[2021-06-25 10:32] LABS: CREATININE 0.8 mg/dL (0.7-1.3); GFR 91.7; TOTAL BILIRUBIN 0.8 mg/dL (0.2-1.0)
[2021-06-25 10:33] LABS: MAGNESIUM 1.9 mg/dL (1.8-2.4); POTASSIUM 3.7 mmol/L (3.5-5.1)
[2021-06-25 10:36] LABS: TOTAL PROTEIN 6.1 g/dL (6.4-8.2)
--- NOTE | 2021-06-25 11:06 | EKG ---
[address] [address] Test Date: 2021-06-25 Test Time: 06:03:12 Pat Name: CHARLENE PEREZ Department: Room: 124 A Gender: M Customer Service Leader: : [id number] Requested By: BAIRON SPENCER Order Number: [id number] Reading MD: Hilton Hood Measurements Intervals [place] Rate: 64 P: IA: QRS: -14 QRSD: 98 T: 68 QT: 406 QTc: 423 Interpretive Statements SINUS RHYTHM LEFTWARD AXIS QRS(T) CONTOUR ABNORMALITY CONSIDER ANTEROSEPTAL MYOCARDIAL DAMAGE T ABNORMALITY IN ANTERIOR LEADS HIGH LATERAL LEADS ABNORMAL ECG Electronically Signed On 06-26-2021 10:15:25 TEAROOM HOST by Hilton Hood
--- NOTE | 2021-06-25 12:12 | HP ---
DATE OF SERVICE: 06/25/2021 ADMIT DATE: 06/25/2021 HISTORY OF PRESENT ILLNESS: The patient is an 86-year-old male patient who presented to the Emergency Room with multiple complaints of chronic joint pain. His knees and ankles for which he takes hydrocodone he states it is about the same as it always is. States over the last year, he has felt more confused than usual, but nothing new over the last couple of days. States he wanted to come into the Emergency Room department tonight because he lives at home by himself and does not have anybody there, is kind of afraid to be at home, worried about falls and was wondering about being admitted again back to [place]. He denied any recent travel, trauma, illness, fever, chills, chest pain, shortness of breath or abdominal pain, nausea, vomiting, dysuria, hematuria, or hematochezia. He was extensively investigated in the Emergency Room, has had lab work that was mostly unremarkable and urinalysis was essentially unremarkable and the patient was admitted with self-care deficit. PAST MEDICAL HISTORY: Significant for type 2 diabetes mellitus, hypertension, hyperlipidemia. He is known to have benign prostatic hypertrophy, prostate cancer, apparently was treated according to him with 40 radiation treatment. He also had coronary artery disease status post PCI with stent deployment x2, has generalized osteoarthritis and chronic low back pain. He does have also T12 compression fracture that seems to be chronic. PAST SURGICAL HISTORY: Significant for bilateral cataract extraction, bilateral total hip arthroplasty and angioplasty and stent deployment. ALLERGIES: He has no known drug allergies. FAMILY HISTORY: Noncontributory. SOCIAL HISTORY: He lives alone. He does not smoke, drink alcohol or use recreational drugs. REVIEW OF SYSTEMS: As per history of present illness. MEDICATIONS: He is currently on the following medications. He is on atorvastatin calcium 80 mg at bedtime, carvedilol 12.5 mg twice a day, lisinopril 40 mg once a day, hydrocodone/APAP 5/325 one tablet every 6 hours, hydrochlorothiazide 50 mg once a day, famotidine 20 mg twice a day and metformin 500 mg p.o. daily. PHYSICAL EXAMINATION: GENERAL: On arrival to the Emergency Room, he looked well and was clearly in no apparent respiratory distress. He was somewhat pale, but no jaundice, cyanosis or thyromegaly. No jugular venous distention. No limb edema. VITAL SIGNS: His heart rate was 65, blood pressure is 166/76, temperature was 97.9, respiratory rate was 20 and oxygen saturation was 97% on room air. HEAD, EYES, EARS, NOSE, AND THROAT: Normocephalic, atraumatic. NECK: Supple. HEART: Showed normal first and second heart sounds. No gallop, rub or murmur. CHEST: Clear to auscultation, no crepitation or rhonchi. ABDOMEN: Distended, soft, nontender. NEUROLOGIC: He was grossly demented, but without any obvious lateralizing sign. He ambulates without assist with a walker. LABORATORY DATA: Showed a white cell count 7400, hemoglobin 11.9, hematocrit 35, MCV 94 and platelet count of 319,000 with normal manual differential. His chemistry showed a serum sodium 140, potassium 3.7, chloride 104, bicarbonate 28, anion gap of 8, BUN 26, creatinine 0.6. His estimated GFR was 91.7 mL per minute. His glucose was 106, calcium was 8.2, ionized calcium was 1.23. Magnesium was 1.9. His total bilirubin, AST, ALT, alkaline phosphatase are all normal. His total protein was 6.1, albumin was 2.9. Urinalysis essentially unremarkable. His coronavirus by rapid testing was negative. ASSESSMENT AND PLAN: In summary, this is an 86-year-old male patient who was admitted with dementia and self-care deficit. He has multiple medical problems including hypertension, hyperlipidemia, type 2 diabetes mellitus, chronic back pain. Plan is to continue with all his current medication. We will consult physical and occupational therapy and also our social media coordinator to see if the patient can be admitted to [facility]. CATHERINE JIMÉNEZ: Amparo TID: [id number]
[2021-06-25 16:35] VITALS: BP 179/79
[2021-06-25] MEDS: HYDROcodone/APAP 5/325MG 1 TAB TABLET PO PRN ×2 (17:29→23:19)
[2021-06-25 19:53] VITALS: BP 155/75
[2021-06-25] MEDS: CARVEDILOL 12.5 MG TABLET PO SCH (20:00)
[2021-06-25] MEDS: ATORVASTATIN CALCIUM 20 MG TABLET PO SCH (20:01)
[2021-06-25] MEDS: FAMOTIDINE 20 MG TABLET PO SCH (20:01)
[2021-06-25 23:31] VITALS: BP 186/57
[2021-06-26 05:09] VITALS: BP 186/87
[2021-06-26] MEDS: metFORMIN XR 500 MG TAB.ER.24H PO SCH (07:39)
[2021-06-26] MEDS: LISINOPRIL 20 MG TABLET PO SCH (07:39)
[2021-06-26] MEDS: hydroCHLOROthiazide 25 MG TABLET. PO SCH (07:39)
[2021-06-26] MEDS: FAMOTIDINE 20 MG TABLET PO SCH ×2 (07:39→20:17)
[2021-06-26] MEDS: CARVEDILOL 12.5 MG TABLET PO SCH ×2 (07:40→20:17)
[2021-06-26 11:36] VITALS: BP 178/72
[2021-06-26] MEDS: HYDROcodone/APAP 5/325MG 1 TAB TABLET PO PRN ×2 (14:52→20:17)
[2021-06-26 15:58] VITALS: BP 155/72
--- NOTE | 2021-06-26 19:42 | PN ---
DATE: 06/26/2021 SUBJECTIVE: The patient is resting, slightly propped up in bed, in no apparent distress. On questioning him, denied any complaint. The nursing staff did not voice any concern today. He generally had an uneventful night. Continued to complain of pain in his back and legs as well as generalized weakness. OBJECTIVE: GENERAL: On examining him, he looked well and was clearly in no apparent respiratory distress. No pallor, jaundice, cyanosis or thyromegaly. No jugular venous distention. No limb edema. VITAL SIGNS: Her heart rate was 58, blood pressure is 178/72, temperature was 98.2, respiratory rate was 18 and oxygen saturation was 94%. HEAD, EYES, EARS, NOSE, AND THROAT: Normocephalic, atraumatic. NECK: Supple. HEART: Showed normal first and second heart sounds. No gallop, rub or murmur. CHEST: Clear to auscultation, no crepitation or rhonchi. ABDOMEN: Distended, soft, nontender. NEUROLOGIC: He is demented, but without any obvious lateralizing sign. His intake and output are incompletely recorded. LABORATORY DATA: Showed a hemoglobin of 12, hematocrit 35 with normal white cell count and platelets. His chemistry is also stable with a BUN of 26, creatinine 0.8. ASSESSMENT: 1. Significant for dementia and self-care deficit. 2. Generalized weakness. 3. He has multiple medical problems including: A. Hypertension. B. Hyperlipidemia. C. Type 2 diabetes mellitus. D. Chronic back pain. PLAN: To continue with all his current medication. Continue with physical and occupational therapy. We will consult our adoption social worker to see if he can be admitted to [facility] and probably to assisted living facility there. JEFRY/LILLIAN DR: JEFRY/blake TID: [id number]
[2021-06-26 20:01] VITALS: BP 146/70
[2021-06-26] MEDS: ATORVASTATIN CALCIUM 20 MG TABLET PO SCH (20:18)
[2021-06-27] MEDS: HYDROcodone/APAP 5/325MG 1 TAB TABLET PO PRN ×4 (03:01→20:46)
[2021-06-27 05:18] VITALS: BP 175/65
[2021-06-27 06:36] LABS: HEMATOCRIT 38.3 % (39.0-53.0); HEMOGLOBIN 12.9 g/dL (13.0-17.5); RED BLOOD COUNT 4.08 x10^6/uL (4.30-5.70); RED CELL DISTRIBUTION WIDTH 13.6 % (11.5-14.5); WHITE BLOOD COUNT 9.2 x10^3/uL (4.0-11.0)
[2021-06-27 07:25] LABS: ALBUMIN 3.2 g/dL (3.4-5.0); CALCIUM 8.7 mg/dL (8.5-10.1); CREATININE 0.9 mg/dL (0.7-1.3); POTASSIUM 3.8 mmol/L (3.5-5.1); TOTAL PROTEIN 6.3 g/dL (6.4-8.2)
[2021-06-27] MEDS: hydroCHLOROthiazide 25 MG TABLET. PO SCH (08:30)
[2021-06-27] MEDS: LISINOPRIL 20 MG TABLET PO SCH (08:31)
[2021-06-27] MEDS: CARVEDILOL 12.5 MG TABLET PO SCH ×2 (08:31→20:47)
[2021-06-27] MEDS: metFORMIN XR 500 MG TAB.ER.24H PO SCH (08:31)
[2021-06-27] MEDS: FAMOTIDINE 20 MG TABLET PO SCH ×2 (08:31→20:46)
[2021-06-27] MEDS: LORazepam 1 MG TABLET PO PRN ×3 (13:42→20:46)
[2021-06-27 19:00] VITALS: BP 138/72
[2021-06-27] MEDS: ATORVASTATIN CALCIUM 20 MG TABLET PO SCH (20:47)
[2021-06-27] MEDS ORDERED: TAMSULOSIN 0.4 MG CAP.ER.24H. PO SCH (21:00)
[2021-06-27 21:53] LABS: BACTERIA,URINE 0 /HPF (0-FEW); BILIRUBIN,URINE NEG (NEG); CLARITY,URINE CLEAR; COLOR,URINE YELLOW; GLUCOSE,URINE NEG (NEG); NITRITE,URINE NEG (NEG); RBC,URINE 0 /HPF (0-2); UROBILINOGEN,URINE 0.2 mg/dL (0.2 mg/dL); WBC,URINE 0 /HPF (0-4)
[2021-06-28 05:00] VITALS: BP 172/86
--- NOTE | 2021-06-28 05:00 | PN ---
DATE: 06/27/2021 SUBJECTIVE: The patient is sitting at the edge of the bed comfortably, in no apparent distress, continued to be complaining of generalized weakness and low back pain. OBJECTIVE: GENERAL: On examining him, he looked well and was clearly in no apparent respiratory distress. No pallor, jaundice, cyanosis or thyromegaly. No jugular venous distention. No lower limb edema. VITAL SIGNS: Heart rate was 64, blood pressure was 175/65, temperature was 97.4, respiratory rate was 18 and oxygen saturation was 96% on room air. HEAD, EYES, EARS, NOSE, AND THROAT: Normocephalic, atraumatic. NECK: Supple. HEART: Showed normal first and second heart sounds. No gallop, rub or murmur. CHEST: Clear to auscultation, no crepitation or rhonchi. ABDOMEN: Distended, soft, nontender. NEUROLOGIC: He is demented, but without any obvious lateralizing sign. His intake and output are incompletely recorded. LABORATORY DATA: His lab work this morning showed a serum sodium 139, potassium 3.8, chloride 101, bicarbonate 29, anion gap of 9, BUN 17, creatinine 0.9. Estimated GFR was 80 mL per minute. His glucose 109, calcium was 8.7. Total bilirubin, AST, ALT are normal. Alkaline phosphatase slightly elevated. His total protein was 6.3, albumin 3.2. His white cell count was 9000, hemoglobin 13, hematocrit 38, MCV 94 and platelet count of 371,000. ASSESSMENT: 1. Dementia with self-care deficit. 2. Generalized weakness. 3. Has multiple other medical problems including: A. Hypertension. B. Hyperlipidemia. C. ____. PLAN: ____ all his current medication. Continue with physical and occupational therapy. We are hoping to discharge him tomorrow to a half-way facility to continue the process of rehabilitation and perhaps from there to be admitted to an assisted living facility as he clearly has marked self-care deficit and he needs assisted living facility. LLOYD/MIKE DR: Amparo TID: [id number]
[2021-06-28] MEDS: CARVEDILOL 12.5 MG TABLET PO SCH (07:58)
[2021-06-28] MEDS: hydroCHLOROthiazide 25 MG TABLET. PO SCH (07:58)
[2021-06-28] MEDS: FAMOTIDINE 20 MG TABLET PO SCH (07:58)
[2021-06-28] MEDS: metFORMIN XR 500 MG TAB.ER.24H PO SCH (07:58)
[2021-06-28 07:59] VITALS: BP 172/86
[2021-06-28] MEDS: LISINOPRIL 20 MG TABLET PO SCH (07:59)
--- NOTE | 2021-06-28 10:15 | DISCH ---
DISCHARGE ORDERS DISCHARGE DATE: Jun 28, 2021 FINAL DIAGNOSIS wealness chronic pain syndrome CONDITION AT DISCHARGE: Stable Code Status: Full SNF STAY <30 DAYS: Yes POST DISCHARGE ORDERS: ACTIVITY ORDERS: Activity as tolerated DIET AFTER DISCHARGE: Regular TREATMENT/EQUIPMENT ORDERS: ADAPTIVE EQUIPMENT NEEDED: None DISCHARGE MEDICATIONS: Home Meds Active Scripts Hydrocodone Bit/Acetaminophen (HYDROCODONE-APAP 5-325 ) 1 Each Tablet, 1 TAB PO PRN Q6HRS PRN for PAIN for 15 Days, #60 TAB 0 Refills Prov:JOANNA KLEIN MD 04/04/21 Reported Medications Carvedilol (Carvedilol) 12.5 Mg Tablet, 1 TAB PO BID for HTN 04/02/21 Atorvastatin Calcium (Atorvastatin Calcium) 80 Mg Tablet, 1 TAB PO DAILY for HLD 04/02/21 Metformin Hcl (METFORMIN HCL ER) 500 Mg Tab.er.24h, 1 TAB PO DAILY for DM 04/02/21 Hydrochlorothiazide (HYDROCHLOROTHIAZIDE TABLET) 50 Mg Tablet, 1 TAB PO DAILY for CHF 04/02/21 Famotidine (FAMOTIDINE) 20 Mg Tablet, 1 TAB PO BID for gerd 04/02/21 Lisinopril (LISINOPRIL) 40 Mg Tablet, 1 TAB PO DAILY for htn 04/02/21 JOANNA KLEIN MD Jun 28, 2021 10:15
[2021-06-28] MEDS ORDERED: HYDR-2155 PO (11:10)
== END 2021-06-28 16:18 | DRG 884 ==
LOC: ER 05:08 → ER HOLD 05:27 → 1 SOUTH 08:39
PROVIDERS: ADMIT Internal Medicine; ATTEND Internal Medicine
DX: F03.90 Unspecified dementia, unspecified severity, without behavioral disturbance, psychotic disturbance, mood disturbance, and anxiety (principal); E43 Unspecified severe protein-calorie malnutrition; E11.9 Type 2 diabetes mellitus without complications; E78.5 Hyperlipidemia, unspecified; G89.29 Other chronic pain; I11.0 Hypertensive heart disease with heart failure; I25.10 Atherosclerotic heart disease of native coronary artery without angina pectoris; I50.9 Heart failure, unspecified; M15.9 Polyosteoarthritis, unspecified; N40.0 Benign prostatic hyperplasia without lower urinary tract symptoms; Z85.46 Personal history of malignant neoplasm of prostate; Z95.5 Presence of coronary angioplasty implant and graft; Z96.643 Presence of artificial hip joint, bilateral; Z98.41 Cataract extraction status, right eye; Z98.42 Cataract extraction status, left eye; Z79.84 Long term (current) use of oral hypoglycemic drugs; Z20.822 Contact with and (suspected) exposure to COVID-19
CPT/HCPCS: 36415; 80047; 80053; 81001; 83735; 84484; 85025; 85027; 87426; 93005; U0003; 97110; 97116; 99285-25